=== PATIENT | male | born 2000 | race Caucasian/White ===

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

== ENCOUNTER 2021-04-01 17:02 | Emergency (ER) | payer MEDICAID, SELFPAY ==
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
[2021-04-01 17:06] VITALS: BP 114/58; PULSE 103; O2SAT 98
== END 2021-04-01 18:58 | disposition left against medical advice (07) ==
PROVIDERS: Emergency Provider Emergency Medicine
DX: T14.90XA Injury, unspecified, initial encounter (principal); Y04.8XXA Assault by other bodily force, initial encounter; M79.641 Pain in right hand; Y93.9 Activity, unspecified; Y92.9 Unspecified place or not applicable; Y99.9 Unspecified external cause status
CPT/HCPCS: 73110; 73130; 99283

== ENCOUNTER 2021-09-30 07:30 | Emergency (ER) | payer MEDICAID, SELFPAY ==
--- NOTE | ~2021-09-30 | CT_ITS ---
EXAMINATION: CT ABDOMEN AND PELVIS WITHOUT CONTRAST CLINICAL INFORMATION: Right lower quadrant pain. COMPARISON: None TECHNIQUE: Multidetector volumetric imaging was performed from the superior aspect of the liver through the pubic symphysis. Sagittal and coronal reformatted images were obtained on the technologist's workstation. This CT examination was performed using dose optimization techniques as appropriate, variously including the following: *Automated exposure control *Adjustment of mA and/or kV according to patient size (this includes techniques or standardized protocols for targeted exams where dose is matched to indication/reason for exam; i.e. extremities or head) *Use of iterative reconstruction technique DLP: 547 mGy-cm FINDINGS: LUNG BASES: The visualized lung bases are unremarkable. LIVER, GALLBLADDER, AND BILIARY TREE: The liver is normal in size, shape, and attenuation. No focal hepatic lesion or biliary ductal dilatation is present. The gallbladder is unremarkable with no evidence of radiopaque gallstones, gallbladder wall thickening, or obvious pericholecystic inflammatory changes. PANCREAS: Unremarkable. SPLEEN: Unremarkable. ADRENAL GLANDS: Unremarkable. KIDNEYS AND URETERS: The kidneys are normal in size, shape, and attenuation. No hydronephrosis, hydroureter, or calculi seen. No perinephric stranding. BLADDER: Unremarkable. GASTROINTESTINAL TRACT: The small and large bowel are unremarkable. The appendix measures 1 cm in diameter without mural thickening or periappendix haziness. No inflammatory process seen in the right lower quadrant. No free air, free fluid seen. ABDOMINAL WALL: No significant hernia is appreciated. LYMPH NODES: Normal. VASCULAR: Unremarkable. PELVIC VISCERA: Unremarkable. OSSEOUS STRUCTURES: Unremarkable. CT/CT abdomen pelvis wo con IMPRESSION: No acute intra-abdominal process seen. 1 cm appendix without mural thickening or roxanne appendix haziness. No radiopaque urolith or hydroureteronephrosis. Fleischner guidelines were followed.
[2021-09-30 07:38] VITALS: BP 127/68; PULSE 101; RESP 18; TEMP 36.9; O2SAT 97; BMI 28.1
[2021-09-30 08:23] LABS: MANUAL DIFF FLAG NO
[2021-09-30 08:25] LABS: Basophils Percent Auto 0.2 % (0-2); Hemoglobin 15.1 g/dl (14.0-18.0); Imm Gran Pct Auto 0.5 % (0.0-0.4); Lymphocytes Absolute Auto 1.1 X10*3/uL (1.2-4.9); Lymphocytes Percent Auto 5.8 % (20-40); Mean Corpuscular HGB Conc 33.6 g/dl (31.0-36.0); Mean Corpuscular Hemoglobin 27.8 pg (27.0-33.0); Mean Corpuscular Volume 82.7 fL (80.0-98.0); Mean Platelet Volume 11.1 fL (9.4-12.4); Monocytes Absolute Auto 0.9 X10*3/uL (0.1-1.2); Monocytes Percent Auto 4.5 % (2-11); Neutrophils Absolute Auto 17.6 x10*3/uL (2.0-8.3); Platelet Count 242 X10*3/uL (160-400); Red Blood Count 5.44 X10*6/uL (4.60-5.80); Red Cell Distribution Width 12.7 % (11.0-16.0); White Blood Count 19.8 X10*3/uL (4.8-10.8)
[2021-09-30 08:34] VITALS: BP 109/70; PULSE 84; RESP 15; TEMP 36.9; O2SAT 99
[2021-09-30 08:36] LABS: Anion Gap 12 (12-20); Blood Urea Nitrogen 7 mg/dL (9-16); Carbon Dioxide 26 mmol/L (22-29); Chloride 103 mmol/L (96-108); Creatinine Clr Calc Pharmacy 119.5; Estimated Glomerular Filt Rate > 60; Glucose Random 144 mg/dL (60-115); Potassium 4.1 mmol/L (3.3-5.1); Sodium 137 mmol/L (135-145)
[2021-09-30 08:39] LABS: Appearance Urine CLEAR; Color Urine YELLOW; Glucose Urine UA 250 MG/DL (NEG); Leukocyte Esterase Urine NEG (NEG); Nitrite Urine NEG (NEG); PH 5.5 (5.0-8.0); Specific Gravity - Urine 1.025 (1.005-1.025); UACC Culture Trigger NO; Urine Blood 2+ (NEG); Urine Ketones NEG (NEG); Urine Protein TRACE MG/DL (NEG-TRACE)
[2021-09-30 08:53] LABS: WBC Urine 0 /HPF (0-4)
--- NOTE | 2021-09-30 09:18 | ED_ITS ---
HPI - General Adult General Chief complaint: Nausea/Vomiting/Diarrhea Stated complaint: vomitting, abd pain Time Seen by Provider: 09/30/21 08:44 Source: patient Mode of arrival: ambulatory Limitations: no limitations History of Present Illness HPI narrative: 21-year-old male presents to the ED right lower quadrant pain since Thursday with episodes of nausea vomiting yesterday. Patient denies any dysuria, hemat uria, flank pain, fever, testicular pain, coughing, headache, dizziness or chills. Patient denies any penile discharge or penile lesions. Related Data Allergies Allergy/AdvReac Type Severity Reaction Status Date / Time No Known Allergies Allergy Unverified 01/26/20 19:03 Review of Systems Review of Systems: Right lower quadrant pain Yes all other systems are reviewed and are negative Physical Exam ED Vital Signs: Vital Signs - 24 hr 09/30/21 07:38 09/30/21 08:34 09/30/21 10:14 Temperature 98.4 F 98.5 F Pulse Rate 101 H 84 Respiratory Rate 18 15 17 Blood Pressure 127/68 109/70 Pulse Oximetry 97 99 09/30/21 11:08 09/30/21 12:41 Temperature Pulse Rate 64 63 Respiratory Rate 16 16 Blood Pressure 105/51 L 112/47 L Pulse Oximetry 98 99 BMI result Body Mass Index 28.1 Const General: cooperative, healthy appearing, comfortable, no acute distress, well developed, alert, awake and Physically active Orientation/consciousness: oriented to time and patient oriented x3 [facility] Head: Yes normal to inspection, Yes No palpable skull fracture present, Yes normocephalic, Yes atraumatic and No abrasion Eyes General: appearance normal, both eyes and all related structures Neck Neck: Yes normal visual inspection, Yes full ROM, Yes no lymphadenopathy, Yes no meningeal signs, Yes trachea midline, Yes supple, No anterior neck swelling and No tender Chest Chest palpation & inspection: normal inspection of the chest and normal palpation of entire chest wall Resp Effort & Inspection: normal respiratory effort and able to speak in complete sentences Auscultation: clear to auscultation bilaterally Cardio Jugular venous distension: no JVD Heart sounds: S1 normal heart sound present and S2 normal heart sound present GI Inspection: Yes normal to inspection and No abdominal wall ecchymosis Palpation (GI): Soft to palpation, not firm, Tenderness to palpation present (GI) in the RLQ, no guarding and not rigid General: No CVA tenderness and Yes no CVA tenderness Back/Spine/Pelvis Back: no CVA tenderness, No CVA tenderness and No back tenderness Skin General skin exam: no rashes or lesions noted and elasticity normal Neuro General: oriented to time, patient oriented x3, gait normal, no meningeal signs and CN's II-XI intact bilaterally Cranial nerves: Yes CN's II-XII intact bilaterally Extrem General: Yes normal to inspection and Yes full ROM Psych Appearance: grossly normal, well kempt and not disheveled Course Course Course Narrative: will order labs. Reevaluation(s) Reevaluation #1: Patient has significant right lower quadrant tenderness with white blood cell count 36589. Urine shows blood. Differential kidney stones versus appendicitis. Due to lack of IV contrast patient will have dry CT scan. Spoke with radiologist who states to do initial CT scan dry to check for kidney stones and appendicitis. Time: 09:27 Reevaluation #2: Case was discussed with Dr. Pizano for boothe potential repeat abdominal CT scan with IV contrast, but he states that was not indicated. He recommended surgical consult. Dr. Rivero of surgery was made aware/ Time: 12:09 Reevaluation #3: Dr. Lawson of surgery evaluated and spoke with patient with [place] intepreter in the ER. admission for observation was offered by Dr. Lawson to patient but patient declined. Patient informed surgeon that he was having diarrhea with abdominal pain for the past couple of days and family members have similar symptoms. This new information Surgeon, Dr. Lawson states patient may have enteriris, but still offer admisson for observation. he informed patient if symptoms worsen such as abdominal pain, fever, chills, nausea, vomiting, diarrhe a blood in stool, any other concerning symptoms patient should return to the ED. he also recommended a clear liquid diet for the next 24 hours. Patient made aware of small glucose in urine and informed to follow up with primary care provider. Time: 14:12 Medical Decision Making MDM Narrative Medical decision making narrative: abdominal pain. Enteritis Lab Data Result diagrams: 09/30/21 08:07 09/30/21 08:07 Labs: Lab Results 09/30/21 09/30/21 09/30/21 Range/Units 08:07 08:07 08:31 WBC 19.8 H (4.8-10.8) X10*3/uL RBC 5.44 (4.60-5.80) X10*6/uL Hgb 15.1 (14.0-18.0) g/dl Hct 45.0 (42.0-52.0) % MCV 82.7 (80.0-98.0) fL MCH 27.8 (27.0-33.0) pg MCHC 33.6 (31.0-36.0) g/dl RDW 12.7 (11.0-16.0) % Plt Count 242 (160-400) X10*3/uL MPV 11.1 (9.4-12.4) fL Immature Gran % (Auto) 0.5 H (0.0-0.4) % Neut % (Auto) 89.0 H (45-73) % Lymph % (Auto) 5.8 L (20-40) % Pershing % (Auto) 4.5 (2-11) % Eos % (Auto) 0.0 (0-4) % Baso % (Auto) 0.2 (0-2) % Lymph # (Auto) 1.1 L (1.2-4.9) X10*3/uL Pershing # (Auto) 0.9 (0.1-1.2) X10*3/uL Eos # (Auto) 0.0 (0.0-0.4) X10*3/uL Baso # (Auto) 0.0 (0.0-0.2) X10*3/uL Abs Immat Gran (auto) 0.10 H (0.00-0.03) X10*3/uL Absolute Neuts (auto) 17.6 H (2.0-8.3) x10*3/uL Absolute Nucleated RBC 0.000 (0.0-0.012) X10*3/uL Nucleated RBC % (auto) 0.0 (0.0-0.2) /100WBC Sodium 137 (135-145) mmol/L Potassium 4.1 (3.3-5.1) mmol/L Chloride 103 (96-108) mmol/L Carbon Dioxide 26 (22-29) mmol/L Anion Gap 12 (12-20) BUN 7 L (9-16) mg/dL Creatinine 1.04 (0.5-1.4) mg/dL Estim Creat Clear Calc 119.5 Estimated GFR > 60 Random Glucose 144 H (60-115) mg/dL Lactic Acid (0.5-2.0) mmol/L Calcium 10.0 (8.4-10.2) mg/dL Urine Color YELLOW Urine Appearance CLEAR Urine pH 5.5 (5.0-8.0) Ur Specific [place] 1.025 (1.005-1.025) Urine Protein TRACE (NEG-TRACE) MG/DL Urine Glucose (UA) 250 H (NEG) MG/DL Urine Ketones NEG (NEG) MG/DL Urine Blood 2+ H (NEG) Urine Nitrite NEG (NEG) Ur Leukocyte Esterase NEG (NEG) Urine RBC 5-9 H (0) /HPF Urine WBC 0 (0-4) /HPF Ur Squamous Epith Cells NONE /LPF Urine Bacteria NONE /LPF 09/30/21 Range/Units 09:45 WBC (4.8-10.8) X10*3/uL RBC (4.60-5.80) X10*6/uL Hgb (14.0-18.0) g/dl Hct (42.0-52.0) % MCV (80.0-98.0) fL MCH (27.0-33.0) pg MCHC (31.0-36.0) g/dl RDW (11.0-16.0) % Plt Count (160-400) X10*3/uL MPV (9.4-12.4) fL Immature Gran % (Auto) (0.0-0.4) % Neut % (Auto) (45-73) % Lymph % (Auto) (20-40) % Pershing % (Auto) (2-11) % Eos % (Auto) (0-4) % Baso % (Auto) (0-2) % Lymph # (Auto) (1.2-4.9) X10*3/uL Pershing # (Auto) (0.1-1.2) X10*3/uL Eos # (Auto) (0.0-0.4) X10*3/uL Baso # (Auto) (0.0-0.2) X10*3/uL Abs Immat Gran (auto) (0.00-0.03) X10*3/uL Absolute Neuts (auto) (2.0-8.3) x10*3/uL Absolute Nucleated RBC (0.0-0.012) X10*3/uL Nucleated RBC % (auto) (0.0-0.2) /100WBC Sodium (135-145) mmol/L Potassium (3.3-5.1) mmol/L Chloride (96-108) mmol/L Carbon Dioxide (22-29) mmol/L Anion Gap (12-20) BUN (9-16) mg/dL Creatinine (0.5-1.4) mg/dL Estim Creat Clear Calc Estimated GFR Random Glucose (60-115) mg/dL Lactic Acid 1.6 (0.5-2.0) mmol/L Calcium (8.4-10.2) mg/dL Urine Color Urine Appearance Urine pH (5.0-8.0) Ur Specific [place] (1.005-1.025) Urine Protein (NEG-TRACE) MG/DL Urine Glucose (UA) (NEG) MG/DL Urine Ketones (NEG) MG/DL Urine Blood (NEG) Urine Nitrite (NEG) Ur Leukocyte Esterase (NEG) Urine RBC (0) /HPF Urine WBC (0-4) /HPF Ur Squamous Epith Cells /LPF Urine Bacteria /LPF Discharge Plan Discharge Clinical Impression: Abdominal pain, Enteritis Patient Disposition: Home, Self-Care Instructions: Abdominal Pain (ED), Enteritis (ED) Additional Instructions: has elegido ir a casa. Nuestro cirujano de ciro recomienda quyen dieta de l?quidos johnnie paulina las pr?ximas 24 horas. Regrese al servicio de urgencias inmediatamente si empeora el dolor abdominal, fiebre, escalofr?os, hematuria, disuria, dolor en el costado, n?useas, v?mitos, incapacidad para tolerar l?quidos, kizzy en las heces, empeoramiento de la diarrea o cualquier otro s?ntoma preocupante. Por favor, may un seguimiento con mari proveedor de atenci?n primaria. Stand Alone Forms: Work/School Release Interventions: ED Discharge Assessment Last Done: 09/30/21 14:29 Discharge Date/Time: 09/30/21 14:30 Print Language: [place]
[2021-09-30] MEDS: 0.9 % Sodium Chloride 1,000 ML 999 ML IV (09:29)
[2021-09-30] MEDS: Ketorolac Tromethamine 30 MG/ML VIAL IVPUSH (09:53)
[2021-09-30 10:10] LABS: Lactic Acid 1.6 mmol/L (0.5-2.0)
[2021-09-30 10:14] VITALS: RESP 17
[2021-09-30 11:08] VITALS: BP 105/51; PULSE 64; RESP 16; O2SAT 98
[2021-09-30 12:41] VITALS: BP 112/47; PULSE 63; RESP 16; O2SAT 99
--- NOTE | 2021-09-30 13:17 | PC.NURSE ---
SURGEON AT BEDSIDE FOR CONSULT.
--- NOTE | 2021-09-30 13:41 | PM.CNGS ---
History of Present Illness Consult details Consult date: 09/30/21 Reason for consult: abdominal pain Narrative: The patient is a 21-year-old gentleman seen at the request of Jaison Petersen PA-C, in the emergency department because of abdominal pain, leukocytosis and an equivocal CT scan. The patient was seen with a merchandise support associate. Initially, while waiting for the merchandise support associate, asked if the patient had been having any diarrhea and if anyone else at home was ill. The patient initially said no, however when the merchandise support associate obtain the history, the patient endorsed that he has been having watery, liquid stool with no blood since last Thursday. He further reported that he was having severe progressive pain over the weekend and earlier today which brought him to the emergency department. Since getting IV hydration, the patient reports resolution. The patient presented with a leukocytosis to 19.8. CT of the abdomen and pelvis was performed which was equivocal with an approximately 10 mm appendix but with no stigmata of appendicitis. No other etiology for the patient's pain and leukocytosis was noted. Patient further endorses that everyone at home including his and children were ill with an upper respiratory tract infection approximately 3 weeks ago. There was also a diarrheal illness and that he was the last to get it, and the symptoms started last Thursday. He is keeping liquids down and denies any fevers, chills, personal history of Crohn's disease, inflammatory bowel disease or ulcerative colitis. Through the merchandise support associate, the patient reports that in [place], he had an upper endoscopy and a colonoscopy which were done for similar pains, but in the left upper quadrant and he was diagnosed with gastritis. He reports that he was treated and after moving to the [facility], he had repeat EGD and colonoscopy at [facility], the results of which are not available to me. He denies any abdominal operations. He reports no known drug allergies Social history is negative for smoking, drinking or any street drug use. He works at [employer] Family history according to the patient through the merchandise support associate is negative for asthma, diabetes, pulmonary, hepatic, renal disorders and specifically no Crohn's disease, inflammatory bowel disease or ulcerative colitis Patient reports no recent trauma but notes that he was [place] over the weekend with his family. He notes that he had swallowed some of the water but that is diarrheal illness pre dated swimming over the weekend. Review of Systems Constitutional: Constitutional: Reports no additional constitutional complaints Eyes: Eyes: Reports no additional eye complaints ENT: Comments: Patient reports a sore throat and recent upper respiratory tract infection with cough Cardiovascular: Cardiovascular: Reports no additional cardiovascular complaints Respiratory: Respiratory: Reports as per HPI and Reports no additional respiratory complaints Gastrointestinal: Gastrointestinal: Reports abdominal pain and Reports diarrhea Comments: Patient reports his abdominal pain has improved since getting IV hydration. Genitourinary: Genitourinary: Reports no additional male genitourinary complaints Musculoskeletal: Musculoskeletal: Reports no additional musculoskeletal complaints Integumentary/Breasts: Skin/Breast: Reports system reviewed and no additional complaints, except as docu Neurologic: Reports system reviewed and no additional complaints, except as documented Psychiatric: Psychiatric: Reports no additional psychiatric complaints Endocrine: Endocrine: Reports no additional endocrine complaints Hematologic/Lymphatic: Hematologic/Lymphatic: Reports no additional hematologic/lymphatic complaints PMFSH Past Medical History Functional capacity: independent ambulation Family History Pertinent family history: The patient denies inflammatory bowel disease history, Crohn's disease or ulcerative colitis in his immediate family. He further denies any diabetes, cardiac, pulmonary, hepatic or renal disorders Social History Social History Advance Directives: No Advance Directives Information Provided: Yes Travel History Ebola Risk: Travel/Contact With Anyone From Affected Area/s: No Meds Allergies Allergy/AdvReac Type Severity Reaction Status Date / Time No Known Allergies Allergy Unverified 01/26/20 19:03 Physical Exam Vital Signs: Vital Signs: Last Vital Signs Temp 98.5 F 09/30/21 08:34 Pulse 63 09/30/21 12:41 Resp 16 09/30/21 12:41 BP 112/47 L 09/30/21 12:41 Pulse Ox 99 09/30/21 12:41 BMI result Body Mass Index 28.1 On exam, the patient is a well-developed, well-nourished male in no acute distress. Insight, judgment and mood all seem appropriate NC/AT, PERRLA, EOMI Oropharynx is clear with no aphthous ulcers, Mallampati class 2 Neck is supple with no masses, adenopathy; thyroid is nontender and free of masses Heart is regular, normal S1-S2, no rubs or murmurs Lungs are clear and equal anteriorly with no audible wheezing, rubs nor bolus to percussion Abdomen is soft with mild right lower quadrant tenderness. I examined him again approximately an hour later and he has no peritoneal irritation to percussion Skin is good turgor and is free of rashes, numerous professional tattoos are present Extremities are free of cyanosis clubbing edema No neurological issues are appreciated Results Labs Result diagrams: 09/30/21 08:07 09/30/21 08:07 Labs: Abnormal lab results 09/30/21 09/30/21 09/30/21 Range/Units 08:07 08:07 08:31 WBC 19.8 H (4.8-10.8) X10*3/uL Immature Gran % (Auto) 0.5 H (0.0-0.4) % Neut % (Auto) 89.0 H (45-73) % Lymph % (Auto) 5.8 L (20-40) % Lymph # (Auto) 1.1 L (1.2-4.9) X10*3/uL Abs Immat Gran (auto) 0.10 H (0.00-0.03) X10*3/uL Absolute Neuts (auto) 17.6 H (2.0-8.3) x10*3/uL BUN 7 L (9-16) mg/dL Random Glucose 144 H (60-115) mg/dL Urine Glucose (UA) 250 H (NEG) MG/DL Urine Blood 2+ H (NEG) Urine RBC 5-9 H (0) /HPF Short CBC 09/30/21 Range/Units 08:07 WBC 19.8 H (4.8-10.8) X10*3/uL Hgb 15.1 (14.0-18.0) g/dl Hct 45.0 (42.0-52.0) % Plt Count 242 (160-400) X10*3/uL BMP 09/30/21 08:07 Sodium 137 Potassium 4.1 Chloride 103 Carbon Dioxide 26 BUN 7 L Creatinine 1.04 Calcium 10.0 Urine 09/30/21 Range/Units 08:31 Urine Color YELLOW Urine Appearance CLEAR Urine pH 5.5 (5.0-8.0) Ur Specific [place] 1.025 (1.005-1.025) Urine Protein TRACE (NEG-TRACE) MG/DL Urine Glucose (UA) 250 H (NEG) MG/DL All other labs normal. Imaging Abdomen CT scan report/results: report reviewed and image reviewed Assessment and Plan (1) Right lower quadrant pain: Status: Acute (2) Diarrhea: Status: Acute Plan With the help of a merchandise support associate, the diarrheal illness and crampy abdominal pain that is improving with IV hydration is likely infectious enteritis that is improving. I reviewed the CT scan with an on-site radiologist and we were in agreement that it is equivocal since there is no evidence of inflammation at the appendix and the patient has been having symptoms for over 48 hours. While his leukocytosis is significant, the glucose in his urine and blood have an unclear etiology Since other members at home had diarrheal illness, I suspect this is infectious in should improve over the next 24 hours. The possibility of early appendicitis and the option of admission and overnight hydration was discussed with the patient but declined given his interval improvement. The plan was reviewed with Chente Petersen who resumed care and would give instructions regarding hydration, diarrheal illness and to return to the emergency department if the right lower quadrant returns and progresses. If the patient is unable to keep p.o. down, he will return. Please reconsult the surgeon on-call if the patient returns. Thank you for asking me to participate in his care. Procedures Date of Service Date of Service: 09/30/21
== END 2021-09-30 14:30 | disposition home or self-care (01) ==
PROVIDERS: Physician Assistant; Emergency Provider Emergency Medicine
DX: K52.9 Noninfective gastroenteritis and colitis, unspecified (principal); R11.2 Nausea with vomiting, unspecified; R10.31 Right lower quadrant pain
CPT/HCPCS: 36415; 74176; 80048; 81001; 83605; 85025; 87040; 96361; 96374; 99284; J1885

== ENCOUNTER 2021-09-30 18:25 | Emergency (ER) | payer MEDICAID, SELFPAY ==
[2021-09-30 18:36] VITALS: BP 117/64; PULSE 85; RESP 20; TEMP 36.9; O2SAT 98; BMI 28.1
== END 2021-09-30 21:30 | disposition left against medical advice (07) ==
PROVIDERS: Emergency Provider Emergency Medicine
DX: R10.9 Unspecified abdominal pain (principal)

== ENCOUNTER 2021-10-01 07:37 | Emergency (ER) | payer MEDICAID, SELFPAY ==
--- NOTE | ~2021-10-01 | CT_ITS ---
EXAMINATION: CT ABDOMEN AND PELVIS WITH CONTRAST CLINICAL INFORMATION: Right lower quadrant pain with diarrhea COMPARISON: CT abdomen pelvis yesterday TECHNIQUE: Multidetector volumetric images were obtained from the superior aspect of the liver through the pubic symphysis following administration 85 mL of Omnipaque 350 intravenous contrast. Sagittal and coronal reformatted images were obtained on the technologist's workstation. Oral contrast: No This CT examination was performed using dose optimization techniques as appropriate, variously including the following: *Automated exposure control *Adjustment of mA and/or kV according to patient size (this includes techniques or standardized protocols for targeted exams where dose is matched to indication/reason for exam; i.e. extremities or head) *Use of iterative reconstruction technique DLP: 559 mGy-cm FINDINGS: LUNG BASES: The visualized lung bases are unremarkable. LIVER, GALLBLADDER, AND BILIARY TREE: The liver is normal in size and shape but demonstrates slightly decreased attenuation compared to the spleen suggesting hepatic steatosis.. No focal hepatic lesion or biliary ductal dilatation is present. The gallbladder is unremarkable with no evidence of radiopaque gallstones, gallbladder wall thickening, or obvious pericholecystic inflammatory changes. PANCREAS: Unremarkable. SPLEEN: Spleen is generous in size measuring 13 cm in greatest transverse dimension. ADRENAL GLANDS: Unremarkable. KIDNEYS AND URETERS: The kidneys are normal in size, shape, and attenuation. No hydronephrosis, hydroureter, or calculi seen. No perinephric stranding. BLADDER: Unremarkable. GASTROINTESTINAL TRACT: The small and large bowel are unremarkable. The appendix is better seen on today's exam performed with oral contrast. The appendix itself contains no contrast and no air and measures 0.9 cm in diameter, near the upper limits of normal. No periappendiceal inflammatory changes are present. No appendicolith is seen. ABDOMINAL WALL: No significant hernia is appreciated. LYMPH NODES: Normal. VASCULAR: Unremarkable. The left renal vein is retroaortic. PELVIC VISCERA: Unremarkable. OSSEOUS STRUCTURES: Unremarkable. CT/CT abdomen pelvis w con IMPRESSION: The appendix is well seen measuring 0.9 cm in diameter. It contains no air but no periappendiceal inflammatory changes are seen and no appendicolith is present. Hence, there is no convincing evidence to suggest acute appendicitis. Incidental note made of probable hepatic steatosis and mild splenomegaly. Fleischner guidelines were followed.
[2021-10-01 07:47] VITALS: BP 106/51; PULSE 63; RESP 18; TEMP 37; O2SAT 99; BMI 28.1
[2021-10-01] MEDS: 0.9 % Sodium Chloride 1,000 ML 999 ML IV (08:56)
[2021-10-01 08:57] LABS: Appearance Urine HAZY; Color Urine YELLOW; Glucose Urine UA NEG (NEG); Leukocyte Esterase Urine NEG (NEG); Nitrite Urine NEG (NEG); Specific Gravity - Urine 1.015 (1.005-1.025); UACC Culture Trigger NO; Urine Blood 1+ (NEG); Urine Ketones NEG (NEG); Urine Protein TRACE MG/DL (NEG-TRACE)
[2021-10-01 09:07] LABS: Lactic Acid 0.8 mmol/L (0.5-2.0)
[2021-10-01 09:16] LABS: Squamous Epithelial Cell Urine TRACE /LPF; WBC Urine 0 /HPF (0-4)
[2021-10-01 09:18] LABS: MANUAL DIFF FLAG NO
[2021-10-01 09:20] LABS: Basophils Percent Auto 0.3 % (0-2); Eosinophils Absolute Auto 0.1 X10*3/uL (0.0-0.4); Eosinophils Percent Auto 1.6 % (0-4); Hematocrit 42.7 % (42.0-52.0); Hemoglobin 13.8 g/dl (14.0-18.0); Imm Gran Abs Auto 0.02 X10*3/uL (0.00-0.03); Imm Gran Pct Auto 0.3 % (0.0-0.4); Lymphocytes Absolute Auto 1.8 X10*3/uL (1.2-4.9); Lymphocytes Percent Auto 26.6 % (20-40); Mean Corpuscular HGB Conc 32.3 g/dl (31.0-36.0); Mean Corpuscular Hemoglobin 27.2 pg (27.0-33.0); Mean Corpuscular Volume 84.2 fL (80.0-98.0); Mean Platelet Volume 11.3 fL (9.4-12.4); Monocytes Absolute Auto 0.5 X10*3/uL (0.1-1.2); Monocytes Percent Auto 6.9 % (2-11); Neutrophils Absolute Auto 4.3 x10*3/uL (2.0-8.3); Neutrophils Percent Auto 64.3 % (45-73); Platelet Count 208 X10*3/uL (160-400); Red Blood Count 5.07 X10*6/uL (4.60-5.80); Red Cell Distribution Width 12.8 % (11.0-16.0); White Blood Count 6.7 X10*3/uL (4.8-10.8)
--- NOTE | 2021-10-01 09:23 | ED_ITS ---
HPI - Abdominal Pain General Chief Complaint: Abdominal Pain Stated Complaint: Abd pain Time Seen by Provider: 10/01/21 08:22 Source: patient Mode of arrival: ambulatory History of Present Illness HPI narrative: 21-year-old male presenting to the ED complaining of persistent RLQ abdominal pain and nonbloody diarrhea since yesterday. Patient was evaluated in our ED yesterday for similar symptoms, had leukocytosis of 19,000, CT negative, & was evaluated by General surgery who recommended patient stay for observation for suspected enteritis however patient went home. Denies fever, chills, nausea, vomiting, constipation, dysuria / hematuria, penile/testicular pain MD elicited complaint: abdominal pain Onset (ago): day(s) Related Data Allergies Allergy/AdvReac Type Severity Reaction Status Date / Time No Known Allergies Allergy Verified 10/01/21 07:45 Review of Systems Review of Systems Constitutional: No Fever, No Chills, No Fatigue, No Malaise ENT/Mouth: No Hearing loss, No Ear Pain, No Nasal Congestion, No sore throat, No Rhinorrhea, No Swallowing Difficulty Eyes: No Eye Pain, No Swelling, No Redness Cardiovascular: No Chest Pain, No SOB, No Dyspnea on Exertion, No Orthopnea, No Edema, No Palpitations Respiratory: No Cough, No Sputum, No Dyspnea Gastrointestinal: No Nausea, No Vomiting, + Diarrhea, No Constipation, + Abdominal pain, No Hematochezia, No Melena Genitourinary: No Dysuria, No Urinary Frequency, No Hematuria, No Urinary Incontinence/retention, No Flank Pain Musculoskeletal: No joint pain, No Myalgias, No Joint Swelling Skin: No Skin Lesions, No rash Neuro: No Weakness, No Dizziness, No Headache Yes all other systems are reviewed and are negative [facility] Past Medical History Attestation statement: The following information was validated with the patient. Medical History Abdominal pain Social History Social History Advance Directives: No Advance Directives Information Provided: No Physical Exam ED Vital Signs: Vital Signs - 24 hr 10/01/21 07:47 10/01/21 13:59 Temperature 98.6 F Pulse Rate 63 55 Respiratory Rate 18 14 Blood Pressure 106/51 L 103/51 L Pulse Oximetry 99 100 BMI result Body Mass Index 28.1 Const General: cooperative, healthy appearing and no acute distress Orientation/consciousness: patient oriented x3 Limitations: no limitations HENMT Head: Yes normal to inspection and Yes atraumatic Ears: hearing grossly normal bilaterally General nose exam: Normal external nose present Face and sinus: Yes normal facial exam Eyes General: appearance normal, both eyes and all related structures EOM: EOMs intact bilaterally Neck Neck: Yes normal visual inspection and Yes no meningeal signs Resp Effort & Inspection: normal respiratory effort and no respiratory distress Cardio Rate: regular rate Heart sounds: S1 normal heart sound present and S2 normal heart sound present GI Inspection: Yes normal to inspection Palpation (GI): Soft to palpation, Tenderness to palpation present (GI) in the RLQ; Negative for with no rebound tenderness, no guarding and not rigid General: Yes no CVA tenderness Back/Spine/Pelvis Back: no CVA tenderness Skin Rashes: no rashes Wounds: no wounds Neuro General: patient oriented x3, tone normal and no meningeal signs Gait exam (Neuro): Normal gait present Extrem General: Yes normal to inspection Course Course Course Narrative: -1007-- leukocytosis improved to 6.7. Labs otherwise unremarkable. Will consult General surgery Dr. Gallo > Stool studies added - Dr. Gallo who will evaluate patient later today and recommended considera tion of repeat CT. I spoke with radiologist Dr. Pizano who recommended p.o. contrast due to nationwide IV contrast depletion. CT abdomen pelvis w con IMPRESSION: The appendix is well seen measuring 0.9 cm in diameter. It contains no air but no periappendiceal inflammatory changes are seen and no appendicolith is present. Hence, there is no convincing evidence to suggest acute appendicitis. ? Incidental note made of probable hepatic steatosis and mild splenomegaly. ? Fleischner guidelines were followed. > patient was evaluated by Dr. Gallo and patient and himself feel comfortable for discharge home. results were discussed with patient with [place] inter preter, including worrisome signs and symptoms and strict return precautions & needed close follow-up with PCP MDM - Abdominal Pain MDM Narrative Medical decision making narrative: 21-year-old male presenting to the ED complaining of persistent RLQ abdominal pain and nonbloody diarrhea since yesterday. on exam vital signs stable, NAD/nontoxic appearing, abdomen soft with RLQ TTP, no rebound or guarding, No CVA tenderness. Concern for appendicitis vs gastroenteritis vs food poisoning vs ? diverticulitis. Plan: Will repeat labs/UA and consult General surgery Differential Diagnosis Differential diagnosis: Likely abdominal pain, constipation, diverticulitis, gastroenteritis, gastritis and pancreatitis Medical Records Attestation: I reviewed the patient's medical records. Lab Data Attestation: I reviewed the patient's lab results. Result diagrams: 10/01/21 08:45 10/01/21 08:45 Labs: Lab Results 10/01/21 10/01/21 10/01/21 Range/Units 08:45 08:45 08:45 WBC 6.7 (4.8-10.8) X10*3/uL RBC 5.07 (4.60-5.80) X10*6/uL Hgb 13.8 L (14.0-18.0) g/dl Hct 42.7 (42.0-52.0) % MCV 84.2 (80.0-98.0) fL MCH 27.2 (27.0-33.0) pg MCHC 32.3 (31.0-36.0) g/dl RDW 12.8 (11.0-16.0) % Plt Count 208 (160-400) X10*3/uL MPV 11.3 (9.4-12.4) fL Immature Gran % (Auto) 0.3 (0.0-0.4) % Neut % (Auto) 64.3 (45-73) % Lymph % (Auto) 26.6 (20-40) % [place] % (Auto) 6.9 (2-11) % Eos % (Auto) 1.6 (0-4) % Baso % (Auto) 0.3 (0-2) % Lymph # (Auto) 1.8 (1.2-4.9) X10*3/uL [place] # (Auto) 0.5 (0.1-1.2) X10*3/uL Eos # (Auto) 0.1 (0.0-0.4) X10*3/uL Baso # (Auto) 0.0 (0.0-0.2) X10*3/uL Abs Immat Gran (auto) 0.02 (0.00-0.03) X10*3/uL Absolute Neuts (auto) 4.3 (2.0-8.3) x10*3/uL Absolute Nucleated RBC 0.000 (0.0-0.012) X10*3/uL Nucleated RBC % (auto) 0.0 (0.0-0.2) /100WBC Sodium 140 (135-145) mmol/L Potassium 4.3 (3.3-5.1) mmol/L Chloride 106 (96-108) mmol/L Carbon Dioxide 26 (22-29) mmol/L Anion Gap 12 (12-20) BUN 5 L (9-16) mg/dL Creatinine 0.88 (0.5-1.4) mg/dL Estim Creat Clear Calc 141.2 Estimated GFR > 60 Random Glucose 97 (60-115) mg/dL Lactic Acid 0.8 (0.5-2.0) mmol/L Calcium 9.2 D (8.4-10.2) mg/dL Magnesium 2.2 (1.6-2.6) mg/dL Total Bilirubin 0.5 (0.0-1.0) mg/dL Direct Bilirubin 0.2 (0.0-0.5) mg/dL AST 29 (5-37) U/L ALT 24 (0-40) U/L Alkaline Phosphatase 120 H (39-117) U/L Total Protein 7.1 (6.5-8.0) g/dL Albumin 4.0 (3.5-5.0) g/dL Lipase 10 (8-78) U/L Urine Color Urine Appearance Urine pH (5.0-8.0) Ur Specific [place] (1.005-1.025) Urine Protein (NEG-TRACE) MG/DL Urine Glucose (UA) (NEG) MG/DL Urine Ketones (NEG) MG/DL Urine Blood (NEG) Urine Nitrite (NEG) Ur Leukocyte Esterase (NEG) Urine RBC (0) /HPF Urine WBC (0-4) /HPF Ur Squamous Epith Cells /LPF Urine Bacteria /LPF 10/01/21 Range/Units 08:45 WBC (4.8-10.8) X10*3/uL RBC (4.60-5.80) X10*6/uL Hgb (14.0-18.0) g/dl Hct (42.0-52.0) % MCV (80.0-98.0) fL MCH (27.0-33.0) pg MCHC (31.0-36.0) g/dl RDW (11.0-16.0) % Plt Count (160-400) X10*3/uL MPV (9.4-12.4) fL Immature Gran % (Auto) (0.0-0.4) % Neut % (Auto) (45-73) % Lymph % (Auto) (20-40) % [place] % (Auto) (2-11) % Eos % (Auto) (0-4) % Baso % (Auto) (0-2) % Lymph # (Auto) (1.2-4.9) X10*3/uL [place] # (Auto) (0.1-1.2) X10*3/uL Eos # (Auto) (0.0-0.4) X10*3/uL Baso # (Auto) (0.0-0.2) X10*3/uL Abs Immat Gran (auto) (0.00-0.03) X10*3/uL Absolute Neuts (auto) (2.0-8.3) x10*3/uL Absolute Nucleated RBC (0.0-0.012) X10*3/uL Nucleated RBC % (auto) (0.0-0.2) /100WBC Sodium (135-145) mmol/L Potassium (3.3-5.1) mmol/L Chloride (96-108) mmol/L Carbon Dioxide (22-29) mmol/L Anion Gap (12-20) BUN (9-16) mg/dL Creatinine (0.5-1.4) mg/dL Estim Creat Clear Calc Estimated GFR Random Glucose (60-115) mg/dL Lactic Acid (0.5-2.0) mmol/L Calcium (8.4-10.2) mg/dL Magnesium (1.6-2.6) mg/dL Total Bilirubin (0.0-1.0) mg/dL Direct Bilirubin (0.0-0.5) mg/dL AST (5-37) U/L ALT (0-40) U/L Alkaline Phosphatase (39-117) U/L Total Protein (6.5-8.0) g/dL Albumin (3.5-5.0) g/dL Lipase (8-78) U/L Urine Color YELLOW Urine Appearance HAZY Urine pH 6.0 (5.0-8.0) Ur Specific [place] 1.015 (1.005-1.025) Urine Protein TRACE (NEG-TRACE) MG/DL Urine Glucose (UA) NEG (NEG) MG/DL Urine Ketones NEG (NEG) MG/DL Urine Blood 1+ H (NEG) Urine Nitrite NEG (NEG) Ur Leukocyte Esterase NEG (NEG) Urine RBC 1-4 (0) /HPF Urine WBC 0 (0-4) /HPF Ur Squamous Epith Cells TRACE /LPF Urine Bacteria NONE /LPF Discharge Plan Discharge Clinical Impression: Abdominal pain Qualifiers: Abdominal location: right lower quadrant Qualified Code(s): R10.31 - Right lower quadrant pain Patient Disposition: Home, Self-Care Instructions: Abdominal Pain (ED) Additional Instructions: your blood work was reassuring today in the emergency department. your CT scan is unremarkable. Does show some fatty liver however this is likely diet related please follow-up with her primary care doctor in the next couple days. Push fluids. Take Tylenol Motrin as needed. Practice of bland diet. If symptoms persist or worsen, pain become constant or unbearable, you have fever, persistent nausea / vomiting or diarrhea please return to the emergency dep artment mari an?lisis de kizzy fue tranquilizador hoy en el departamento de emergencias. mari tomograf?a computarizada no tiene nada especial. Muestra algo de h?gado graso, sin embargo, esto probablemente est? relacionado con la dieta. may un seguimiento con mari m?dico de atenci?n primaria en los pr?ximos d?as. Empuje los fluidos. [place] Tylenol Motrin seg?n sea necesario. Pr?ctica de dieta blanda. Si los s?ntomas persisten o empeoran, el dolor se vuelve parisa o insoportable, tiene fiebre, n?useas/v?mitos persistentes o diarrea, regrese al departamento de emergencias. Referrals: [facility] [Primary Care Provider] - 2 days Print Language: [place]ian
[2021-10-01 09:46] LABS: Alanine Aminotransferase 24 U/L (0-40); Alkaline Phosphatase 120 U/L (39-117); Anion Gap 12 (12-20); Aspartate Amino Transferase 29 U/L (5-37); Bilirubin Direct 0.2 mg/dL (0.0-0.5); Bilirubin Total 0.5 mg/dL (0.0-1.0); Blood Urea Nitrogen 5 mg/dL (9-16); Calcium 9.2 mg/dL (8.4-10.2); Carbon Dioxide 26 mmol/L (22-29); Chloride 106 mmol/L (96-108); Creatinine Clr Calc Pharmacy 141.2; Estimated Glomerular Filt Rate > 60; Glucose Random 97 mg/dL (60-115); Lipase 10 U/L (8-78); Magnesium 2.2 mg/dL (1.6-2.6); Potassium 4.3 mmol/L (3.3-5.1); Sodium 140 mmol/L (135-145); Total Protein 7.1 g/dL (6.5-8.0)
[2021-10-01] MEDS: Ketorolac Tromethamine 15 MG/ML VIAL IVPUSH (10:17)
--- NOTE | 2021-10-01 10:49 | PC.NURSE ---
pt drinking po contrast, no vomiting at this time.
[2021-10-01] MEDS: Barium Sulfate Oral (Berry) 450 ML ORAL.SUSP 900 ML PO (12:51)
--- NOTE | 2021-10-01 13:45 | PC.NURSE ---
pt sleeping, easily awoken,, no nausea or vomiting, denies pain at this time.
[2021-10-01 13:59] VITALS: BP 103/51; PULSE 55; RESP 14; O2SAT 100
--- NOTE | 2021-10-01 14:28 | PM.CNGS ---
History of Present Illness Consult details Consult date: 10/01/21 Narrative: 21-year-old male referred by the ER for abdominal pain. He actually was here yesterday as well for the same complaints. He was seen by Dr. Lawson for abdominal pain. The patient's CT scan did not reveal any obvious etiology. He had right-sided abdominal pain but his appendix did appear inflamed. Dr. Lawson had apparently told him that he can be admitted overnight for observation but he decided to go home. His abdominal pain had resolved after was given IV fluids. He however says that he had recurrence of pain again this morning so he came back to the ER. His relevant history actually dates back to about a week ago. He says that he has had some right-sided abdominal pain and diarrhea for about a week now. He says that his stools had been watery periodically. He had some vomiting over the weekend as well. He did state that his diarrhea seemed to have improved has 2 days. He describes having 3 bowel movements of water stools last Thursday and about 1 or 2 yesterday. He said he has had no diarrhea today. He has had no vomiting. He says he actually tolerates food well. He does mention that his abdominal pain had been periodic last week. He denies any fever or chills. He also admits that he has had some chronic GI issues for years now and has had undergone EGD and colonoscopy in [place] as well as in [facility]. He is uncertain as to any significant findings. Review of Systems Constitutional: Constitutional: Denies chills and Denies fever(s) Cardiovascular: Cardiovascular: Denies chest pain, Denies dyspnea and Denies dyspnea on exertion Respiratory: Respiratory: Denies cough, Denies dyspnea and Denies dyspnea on exertion Gastrointestinal: Gastrointestinal: Denies hematochezia and Reports diarrhea Genitourinary: Genitourinary: Denies hematuria and Denies difficulty urinating Musculoskeletal: Musculoskeletal: Denies back pain and Denies limited range of motion Neurologic: Denies focal weakness and Denies convulsions Psychiatric: Psychiatric: Denies depression and Denies mood swings PMFSH Past Medical History Medical History (Updated 10/01/21 @ 14:34 by Ra Gallo MD) Abdominal pain Social History Social History Advance Directives: No Advance Directives Information Provided: No Meds Allergies Allergy/AdvReac Type Severity Reaction Status Date / Time No Known Allergies Allergy Verified 10/01/21 07:45 Physical Exam Vital Signs: Vital Signs: Last Vital Signs Temp 98.6 F 10/01/21 07:47 Pulse 55 10/01/21 13:59 Resp 14 10/01/21 13:59 BP 103/51 L 10/01/21 13:59 Pulse Ox 100 10/01/21 13:59 BMI result Body Mass Index 28.1 Const: Other: looks well General: comfortable and no acute distress Orientation/consciousness: patient oriented x3 Neck: Neck: Yes no lymphadenopathy Resp: Auscultation: clear to auscultation bilaterally Cardio: Rhythm: regular rhythm GI: Other: very minimal tenderness on the right abdomen, no guarding rebound, no Silva's sign, no psoas sign, no Rovsing's sign Palpation (GI): Soft to palpation, nontender and no guarding Neuro: General: patient oriented x3 Results Labs Result diagrams: 10/01/21 08:45 10/01/21 08:45 Labs: Abnormal lab results 10/01/21 10/01/21 10/01/21 Range/Units 08:45 08:45 08:45 Hgb 13.8 L (14.0-18.0) g/dl BUN 5 L (9-16) mg/dL Alkaline Phosphatase 120 H (39-117) U/L Urine Blood 1+ H (NEG) Short CBC 10/01/21 Range/Units 08:45 WBC 6.7 (4.8-10.8) X10*3/uL Hgb 13.8 L (14.0-18.0) g/dl Hct 42.7 (42.0-52.0) % Plt Count 208 (160-400) X10*3/uL BMP 10/01/21 08:45 Sodium 140 Potassium 4.3 Chloride 106 Carbon Dioxide 26 BUN 5 L Creatinine 0.88 Calcium 9.2 D Liver Function 10/01/21 Range/Units 08:45 Total Bilirubin 0.5 (0.0-1.0) mg/dL Direct Bilirubin 0.2 (0.0-0.5) mg/dL AST 29 (5-37) U/L ALT 24 (0-40) U/L Alkaline Phosphatase 120 H (39-117) U/L Albumin 4.0 (3.5-5.0) g/dL Urine 10/01/21 Range/Units 08:45 Urine Color YELLOW Urine Appearance HAZY Urine pH 6.0 (5.0-8.0) Ur Specific [place] 1.015 (1.005-1.025) Urine Protein TRACE (NEG-TRACE) MG/DL Urine Glucose (UA) NEG (NEG) MG/DL All other labs normal. Imaging Abdomen CT scan report/results: report reviewed and image reviewed CT scan - pelvis: report reviewed Additional studies: Laboratory Results WBC 6.7 X10*3/uL (4.8-10.8) 10/01/21 08:45 RBC 5.07 X10*6/uL (4.60-5.80) 10/01/21 08:45 Hgb 13.8 g/dl (14.0-18.0) L 10/01/21 08:45 Hct 42.7 % (42.0-52.0) 10/01/21 08:45 MCV 84.2 fL (80.0-98.0) 10/01/21 08:45 MCH 27.2 pg (27.0-33.0) 10/01/21 08:45 MCHC 32.3 g/dl (31.0-36.0) 10/01/21 08:45 RDW 12.8 % (11.0-16.0) 10/01/21 08:45 Plt Count 208 X10*3/uL (160-400) 10/01/21 08:45 MPV 11.3 fL (9.4-12.4) 10/01/21 08:45 Immature Gran % (Auto) 0.3 % (0.0-0.4) 10/01/21 08:45 Neut % (Auto) 64.3 % (45-73) 10/01/21 08:45 Lymph % (Auto) 26.6 % (20-40) 10/01/21 08:45 [place] % (Auto) 6.9 % (2-11) 10/01/21 08:45 Eos % (Auto) 1.6 % (0-4) 10/01/21 08:45 Baso % (Auto) 0.3 % (0-2) 10/01/21 08:45 Lymph # (Auto) 1.8 X10*3/uL (1.2-4.9) 10/01/21 08:45 [place] # (Auto) 0.5 X10*3/uL (0.1-1.2) 10/01/21 08:45 Eos # (Auto) 0.1 X10*3/uL (0.0-0.4) 10/01/21 08:45 Baso # (Auto) 0.0 X10*3/uL (0.0-0.2) 10/01/21 08:45 Abs Immat Gran (auto) 0.02 X10*3/uL (0.00-0.03) 10/01/21 08:45 Absolute Neuts (auto) 4.3 x10*3/uL (2.0-8.3) 10/01/21 08:45 Absolute Nucleated RBC 0.000 X10*3/uL (0.0-0.012) 10/01/21 08:45 Nucleated RBC % (auto) 0.0 /100WBC (0.0-0.2) 10/01/21 08:45 Sodium 140 mmol/L (135-145) 10/01/21 08:45 Potassium 4.3 mmol/L (3.3-5.1) 10/01/21 08:45 Chloride 106 mmol/L (96-108) 10/01/21 08:45 Carbon Dioxide 26 mmol/L (22-29) 10/01/21 08:45 Anion Gap 12 (12-20) 10/01/21 08:45 BUN 5 mg/dL (9-16) L 10/01/21 08:45 Creatinine 0.88 mg/dL (0.5-1.4) 10/01/21 08:45 Estim Creat Clear Calc 141.2 10/01/21 08:45 Estimated GFR > 60 10/01/21 08:45 Random Glucose 97 mg/dL (60-115) 10/01/21 08:45 Lactic Acid 0.8 mmol/L (0.5-2.0) 10/01/21 08:45 Calcium 9.2 mg/dL (8.4-10.2) D 10/01/21 08:45 Magnesium 2.2 mg/dL (1.6-2.6) 10/01/21 08:45 Total Bilirubin 0.5 mg/dL (0.0-1.0) 10/01/21 08:45 Direct Bilirubin 0.2 mg/dL (0.0-0.5) 10/01/21 08:45 AST 29 U/L (5-37) 10/01/21 08:45 ALT 24 U/L (0-40) 10/01/21 08:45 Alkaline Phosphatase 120 U/L (39-117) H 10/01/21 08:45 Total Protein 7.1 g/dL (6.5-8.0) 10/01/21 08:45 Albumin 4.0 g/dL (3.5-5.0) 10/01/21 08:45 Lipase 10 U/L (8-78) 10/01/21 08:45 Urine Color YELLOW 10/01/21 08:45 Urine Appearance HAZY 10/01/21 08:45 Urine pH 6.0 (5.0-8.0) 10/01/21 08:45 Ur Specific [place] 1.015 (1.005-1.025) 10/01/21 08:45 Urine Protein TRACE MG/DL (NEG-TRACE) 10/01/21 08:45 Urine Glucose (UA) NEG MG/DL (NEG) 10/01/21 08:45 Urine Ketones NEG MG/DL (NEG) 10/01/21 08:45 Urine Blood 1+ (NEG) H 10/01/21 08:45 Urine Nitrite NEG (NEG) 10/01/21 08:45 Ur Leukocyte Esterase NEG (NEG) 10/01/21 08:45 Urine RBC 1-4 /HPF (0) 10/01/21 08:45 Urine WBC 0 /HPF (0-4) 10/01/21 08:45 Ur Squamous Epith Cells TRACE /LPF 10/01/21 08:45 Urine Bacteria NONE /LPF 10/01/21 08:45 Impressions Abdomen/Pelvis CT 10/01/21 12:53 IMPRESSION: The appendix is well seen measuring 0.9 cm in diameter. It contains no air but no periappendiceal inflammatory changes are seen and no appendicolith is present. Hence, there is no convincing evidence to suggest acute appendicitis. Incidental note made of probable hepatic steatosis and mild splenomegaly. Fleischner guidelines were followed. Assessment and Plan (1) Abdominal pain: Status: Acute He came back to the ER today because of his abdominal pain. He says that he was told yesterday come back to the ER if he has recurrence of pain. He says that this is much better now. His abdominal exam remains very benign. White count is also normal. I have reviewed his repeat CT scan today. This does not reveal any inflammatory process within the abdomen. There is no obvious pathology may explain his pain. He does have associated symptoms that suggest gastroenteritis. He is able to tolerate food and does state that his diarrhea is much improved. Furthermore, he has had no vomiting In the absence of any significant scan finding, and very benign exam, I feel that he does not need to be admitted to the hospital. he may need to be worked up for etiology of diarrhea depending on his clinical course. He says that he is comfortable with going home as he says he is hungry and feels much better. I have discussed the above with the ED staff Procedures Date of Service Date of Service: 10/01/21
--- NOTE | 2021-10-01 14:33 | PC.NURSE ---
DR FLOYD AT BEDSIDE.
== END 2021-10-01 15:16 | disposition home or self-care (01) ==
PROVIDERS: Physician Assistant; Emergency Provider Emergency Medicine Emergency Medical Services
DX: R10.31 Right lower quadrant pain (principal); R19.7 Diarrhea, unspecified; Z79.899 Other long term (current) drug therapy
CPT/HCPCS: 36415; 74176; 74177; 80048; 80076; 81001; 83605; 83690; 83735; 85025; 87040; 96361; 96374; 99284; J1885

== ENCOUNTER 2024-01-26 17:45 | Inpatient (IN) | payer MEDICAID, SELFPAY ==
--- NOTE | ~2024-01-26 | CT_ITS ---
EXAMINATION: CT ABDOMEN AND PELVIS WITHOUT CONTRAST CLINICAL INFORMATION: Right lower quadrant pain COMPARISON: CT abdomen and pelvis October 01, 2021 TECHNIQUE: Multidetector volumetric imaging was performed from the superior aspect of the liver through the pubic symphysis. Sagittal and coronal reformatted images were obtained on the technologist's workstation. This CT examination was performed using dose optimization techniques as appropriate, variously including the following: *Automated exposure control *Adjustment of mA and/or kV according to patient size (this includes techniques or standardized protocols for targeted exams where dose is matched to indication/reason for exam; i.e. extremities or head) *Use of iterative reconstruction technique DLP: 630 mGy-cm FINDINGS: LUNG BASES: The visualized lung bases are unremarkable. LIVER, GALLBLADDER, AND BILIARY TREE: The liver is normal in size, shape, and attenuation. No focal hepatic lesion or biliary ductal dilatation is present. The gallbladder is unremarkable with no evidence of radiopaque gallstones, gallbladder wall thickening, or obvious pericholecystic inflammatory changes. PANCREAS: Unremarkable. SPLEEN: Unremarkable. ADRENAL GLANDS: Unremarkable. KIDNEYS AND URETERS: The kidneys are normal in size, shape, and attenuation. No hydronephrosis, hydroureter, or calculi seen. No perinephric stranding. BLADDER: Unremarkable. GASTROINTESTINAL TRACT: The small and large bowel are unremarkable. Again the appendix is somewhat prominent, with no significant periappendiceal fat stranding. The tip of the appendix is not visualized. ABDOMINAL WALL: No significant hernia is appreciated. LYMPH NODES: 6 prominent mesenteric lymph nodes, most prominent in the right lower quadrant. Small volume of fluid in pelvis. VASCULAR: Unremarkable. PELVIC VISCERA: Unremarkable. OSSEOUS STRUCTURES: Unremarkable. CT/CT abdomen pelvis wo IV con IMPRESSION: 1. Again the appendix is prominent, without significant periappendiceal fat stranding. The tip of the appendix is not visualized. 2. Prominent mesenteric lymph nodes, most prominent in the right lower quadrant, and small volume of fluid in pelvis. These findings are nonspecific and can be seen in the setting of gastroenteritis or early appendicitis. Fleischner guidelines were followed. Electronically signed by: Tomas Torres MD 01/26/2024 08:15 PM EDT
[2024-01-26 19:09] VITALS: BP 123/63; PULSE 60; RESP 18; TEMP 36.6; O2SAT 97; BMI 29.5
--- NOTE | 2024-01-26 19:09 | ED_ITS ---
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 Patient reports he woke up with right lower abdominal pain this morning. He has no associated symptoms including nausea vomiting, diarrhea He does state that he did not have a bowel movement today but does not feel constipated He has no fevers or chills His pain is worse with movement and pushing on the area His pain is currently a 5/10, dull as he has sitting in the stretcher He has no other complaints or concerns at this time Related Data Allergies Allergy/AdvReac Type Severity Reaction Status Date / Time No Known Allergies Allergy Verified 01/26/24 19:10 Review of Systems Constitutional: Denies body ache(s), Denies chills and Denies fever(s) Eyes: Denies blurry vision Denies sore throat Cardiovascular: Denies chest pain and Denies dyspnea Respiratory: Denies cough and Denies dyspnea Gastrointestinal: Reports abdominal pain, Denies diarrhea, Denies nausea and Denies vomiting Musculoskeletal: Denies back pain Skin/Breast: Denies rash PMFSH Past Medical History Medical History Abdominal pain Social History Social History Smoked in Last 30 Days: No Use of substances other than those prescribed or required for medical reasons: No Advance Directives: No Advance Directives Information Provided: No Do you have a plan to hurt others: No Plan Physical Exam ED Vital Signs: Vital Signs - 24 hr 01/26/24 19:09 01/26/24 22:00 Temperature 97.9 F 98.1 F Pulse Rate 60 62 Respiratory Rate 18 16 Blood Pressure 123/63 106/70 Pulse Oximetry 97 97 Oxygen Delivery Method Room Air Room Air BMI result Body Mass Index 29.5 Const General: healthy appearing, comfortable, no acute distress, alert and awake Nutritional Appearance: well nourished Orientation/consciousness: patient oriented x3 HENMT Head: Yes normocephalic and Yes atraumatic Eyes Eyelids: Yes eyelids normal Conjunctivae: conjunctivae normal Sclerae: sclerae normal Corneas: corneas normal Pupils: Equal, round and reactive pupils present EOM: EOMs intact bilaterally Neck Neck: Yes full ROM Resp Effort & Inspection: normal respiratory effort, able to speak in complete sentences and not labored GI Inspection: No distended Palpation (GI): Soft to palpation, not firm, Tenderness to palpation present (GI) in the RLQ and at McBurney's point, no guarding and not rigid Skin General skin exam: no rashes or lesions noted and elasticity normal Neuro General: patient oriented x3 Cranial nerves: Yes Equal, round and reactive pupils present and Yes Bilaterally intact EOM present Cognition (Neuro): normal cognition Extrem Other: Moving all extremities well without any obvious deformities Course Course Course Narrative: This is a Rapid Medical Examination (RME) performed by Tiana Wiley PA-C in triage. Full HPI, ROS, assessment and treatment plan per primary provider in the Main ED. 23-year-old male presents to the ER for evaluation of 2 days of intermittent but worsening right lower quadrant pain. Patient reports pain is currently a 7/10. No associated nausea, vomiting, diarrhea or fevers. Pain is worse with walking or palpation to the area. Patient appears comfortable on triage. His abdomen is soft but he has moderate amount of tenderness right lower quadrant, no rebound or guarding. Normoactive bowel sounds. Plan: Lab work, CT scan Reevaluation(s) Reevaluation #1: Discussed with general surgery, Dr. Laurent who feels that given the patient's right lower quadrant tenderness, trace free fluid in the pelvic and a male, lymphadenopathy with CT findings of prominent appendix, the patient should be admitted for serial abdominal exams and will be treated with IV antibiotics Time: 23:35 Medical Decision Making Medical Decision Making MDM Narrative: 23-year-old male presents for evaluation of a right lower abdominal pain. He does have a white count of 17.9, he is tender in the right lower quadrant, there is negative obturator, negative psoas signs. CT scan shows a prominent appendix and some nonspecific lymphadenopathy worse in the right lower quadrant. Given these findings with the right lower quadrant pain and tenderness a constant we placed to general surgery for acute appendicitis. Differential Diagnosis Differential Diagnoses: The differential diagnosis associated with the presentation includes Acute appendicitis Abdominal pain Gastroenteritis Obstructive uropathy Admission/Observation Consideration of admission/observation: Escalation of care including admission/observation considered Consult Healthcare Provider Management of the patient was discussed with: Mobile Qa Tester (General surgery) Lab Data MDM Lab Attestation statement: I reviewed the patient's lab results. Leukocytosis to 17.9 K. no anemia, normal platelet count. No significant electrolyte abnormalities 01/26/24 19:46 01/26/24 19:46 Labs: Lab Results 01/26/24 01/26/24 Range/Units 19:46 22:05 WBC 17.9 H (4.8-10.8) X10*3/uL RBC 5.53 (4.60-5.80) X10*6/uL Hgb 15.4 (14.0-18.0) g/dl Hct 45.8 (42.0-52.0) % MCV 82.8 (80.0-98.0) fL MCH 27.8 (27.0-33.0) pg MCHC 33.6 (31.0-36.0) g/dl RDW 12.8 (11.0-16.0) % Plt Count 263 D (160-400) X10*3/uL MPV 10.7 (9.4-12.4) fL Immature Gran % (Auto) 0.3 (0.0-0.4) % Neut % (Auto) 90.7 H (45-73) % Lymph % (Auto) 5.5 L (20-40) % Gaines % (Auto) 3.2 (2-11) % Eos % (Auto) 0.1 (0-4) % Baso % (Auto) 0.2 (0-2) % Lymph # (Auto) 1.0 L (1.2-4.9) X10*3/uL Gaines # (Auto) 0.6 (0.1-1.2) X10*3/uL Eos # (Auto) 0.0 (0.0-0.4) X10*3/uL Baso # (Auto) 0.0 (0.0-0.2) X10*3/uL Abs Immat Gran (auto) 0.05 H (0.00-0.03) X10*3/uL Absolute Neuts (auto) 16.2 H (2.0-8.3) x10*3/uL Absolute Nucleated RBC 0.000 (0.0-0.012) X10*3/uL Nucleated RBC % (auto) 0.0 (0.0-0.2) /100WBC Smear Tech's Comments VERIFIED Sodium 141 (135-145) mmol/L Potassium 3.9 (3.3-5.1) mmol/L Chloride 107 (96-108) mmol/L Carbon Dioxide 27 (22-29) mmol/L Anion Gap 11 L (12-20) BUN 9 (9-16) mg/dL Creatinine 1.00 (0.5-1.4) mg/dL Estim Creat Clear Calc 105.4 Estimated GFR > 60 Random Glucose 109 (60-115) mg/dL Calcium 10.2 D (8.4-10.2) mg/dL Magnesium 2.1 (1.6-2.6) mg/dL Total Bilirubin 0.4 (0.0-1.0) mg/dL Direct Bilirubin 0.2 (0.0-0.5) mg/dL AST 24 (5-37) U/L ALT 29 (0-40) U/L Alkaline Phosphatase 212 H (39-117) U/L Total Protein 8.1 H (6.5-8.0) g/dL Albumin 4.5 (3.5-5.0) g/dL Lipase 13 (8-78) U/L Urine Color Yellow Urine Appearance Clear Urine pH 5.5 (5.0-9.0) Ur Specific [place] 1.025 (1.005-1.025) Urine Protein Negative (Neg-Trace) mg/dL Urine Glucose (UA) Negative (Negative) mg/dL Urine Ketones Trace (Negative) mg/dL Urine Blood Negative (Negative) Urine Nitrite Negative (Negative) Ur Leukocyte Esterase Negative (Negative) Discharge Plan Discharge Clinical Impression: Abdominal pain Patient Disposition: Admitted As Inpatient Print Language: Occitan
[2024-01-26 19:57] LABS: Basophils Percent Auto 0.2 % (0-2); Eosinophils Percent Auto 0.1 % (0-4); Hematocrit 45.8 % (42.0-52.0); Hemoglobin 15.4 g/dl (14.0-18.0); Imm Gran Abs Auto 0.05 X10*3/uL (0.00-0.03); Imm Gran Pct Auto 0.3 % (0.0-0.4); Lymphocytes Percent Auto 5.5 % (20-40); MANUAL DIFF FLAG SCAN; Mean Corpuscular HGB Conc 33.6 g/dl (31.0-36.0); Mean Corpuscular Hemoglobin 27.8 pg (27.0-33.0); Mean Corpuscular Volume 82.8 fL (80.0-98.0); Mean Platelet Volume 10.7 fL (9.4-12.4); Monocytes Absolute Auto 0.6 X10*3/uL (0.1-1.2); Monocytes Percent Auto 3.2 % (2-11); Neutrophils Absolute Auto 16.2 x10*3/uL (2.0-8.3); Neutrophils Percent Auto 90.7 % (45-73); Platelet Count 263 X10*3/uL (160-400); Red Blood Count 5.53 X10*6/uL (4.60-5.80); Red Cell Distribution Width 12.8 % (11.0-16.0); SCAN SMEAR FLAG 1; White Blood Count 17.9 X10*3/uL (4.8-10.8)
[2024-01-26 20:15] LABS: Alanine Aminotransferase 29 U/L (0-40); Albumin Level 4.5 g/dL (3.5-5.0); Alkaline Phosphatase 212 U/L (39-117); Anion Gap 11 (12-20); Aspartate Amino Transferase 24 U/L (5-37); Bilirubin Direct 0.2 mg/dL (0.0-0.5); Bilirubin Total 0.4 mg/dL (0.0-1.0); Blood Urea Nitrogen 9 mg/dL (9-16); Calcium 10.2 mg/dL (8.4-10.2); Carbon Dioxide 27 mmol/L (22-29); Chloride 107 mmol/L (96-108); Creatinine Clr Calc Pharmacy 105.4; Estimated Glomerular Filt Rate > 60; Glucose Random 109 mg/dL (60-115); Lipase 13 U/L (8-78); Magnesium 2.1 mg/dL (1.6-2.6); Potassium 3.9 mmol/L (3.3-5.1); Sodium 141 mmol/L (135-145); Total Protein 8.1 g/dL (6.5-8.0)
[2024-01-26 20:42] LABS: SLIDE REVIEW VERIFIED
[2024-01-26 22:00] VITALS: BP 106/70; PULSE 62; RESP 16; TEMP 36.7; O2SAT 97
[2024-01-26 22:13] LABS: Appearance Urine Clear; Color Urine Yellow; Glucose Urine UA Negative (Negative); Leukocyte Esterase Urine Negative (Negative); Nitrite Urine Negative (Negative); PH 5.5 (5.0-9.0); Specific Gravity - Urine 1.025 (1.005-1.025); Urine Blood Negative (Negative); Urine Ketones Trace mg/dL (Negative); Urine Protein Negative (Neg-Trace)
[2024-01-26] MEDS: Piperacillin Sodium/Tazobactam 3.375 GM in 0.9 % Sodium Chloride 50 ML IV (23:44)
[2024-01-26] MEDS: 0.9 % Sodium Chloride Flush 3 ML SYRINGE IVFLUSH (23:44)
[2024-01-27] MEDS: Ketorolac Tromethamine 15 MG/ML VIAL IVPUSH ×4 (01:08→17:35)
[2024-01-27 05:00] LABS: Basophils Absolute Auto 0.1 X10*3/uL (0.0-0.2); Basophils Percent Auto 0.4 % (0-2); Eosinophils Absolute Auto 0.1 X10*3/uL (0.0-0.4); Eosinophils Percent Auto 0.9 % (0-4); Hematocrit 43.5 % (42.0-52.0); Hemoglobin 14.6 g/dl (14.0-18.0); Imm Gran Abs Auto 0.05 X10*3/uL (0.00-0.03); Imm Gran Pct Auto 0.4 % (0.0-0.4); Lymphocytes Absolute Auto 2.6 X10*3/uL (1.2-4.9); MANUAL DIFF FLAG NO; Mean Corpuscular HGB Conc 33.6 g/dl (31.0-36.0); Mean Corpuscular Hemoglobin 27.7 pg (27.0-33.0); Mean Corpuscular Volume 82.5 fL (80.0-98.0); Mean Platelet Volume 10.7 fL (9.4-12.4); Monocytes Absolute Auto 0.7 X10*3/uL (0.1-1.2); Monocytes Percent Auto 5.6 % (2-11); Neutrophils Absolute Auto 8.4 x10*3/uL (2.0-8.3); Neutrophils Percent Auto 70.7 % (45-73); Platelet Count 232 X10*3/uL (160-400); Red Blood Count 5.27 X10*6/uL (4.60-5.80); Red Cell Distribution Width 12.8 % (11.0-16.0); White Blood Count 11.9 X10*3/uL (4.8-10.8)
[2024-01-27 06:00] VITALS: BP 117/55; PULSE 59; RESP 18; TEMP 36.8; O2SAT 95
--- NOTE | 2024-01-27 08:10 | P.HPGS_ITS ---
History of Present Illness History of Present Illness Date of Service: 01/27/24 <Val Sanchez PA-C - Last Filed: 01/27/24 08:32> 01/27/24 <Ra Gallo MD - Last Filed: 01/27/24 09:58> Chief complaint: Abdo Pain <Val Sanchez PA-C - Last Filed: 01/27/24 08:32> Narrative: Scott Vaughn is a 23 year old male with no significant PMH who was in his usual state of health when he developed acute onset of RLQ abdominal pain 2 days ago. The pain was severe and sharp in nature and persisted, prompting him to seek care in the ED for evaluation. Work up in the ED included CBC, BMP, LFTs which was significant for a leukocytosis of 17.9 improved to 11.[address] scan abd/pelvis was obtained which showed prominent appendix without significant periappendiceal fat stranding with prominent mesenteric lymph nodes in the RLQ. He had a similar episode of pain 2 years prior. He denies fever, chills, nausea, vomiting, diarrhea, sick contacts, recent travel. He feels improved this morning and his pain is less severe. He is hungry and would like to eat. <Val Sanchez PA-C - Last Filed: 01/27/24 08:32> Review of Systems Constitutional: Constitutional: Denies chills and Denies fever(s) <Val Sanchez PA-C - Last Filed: 01/27/24 08:32> ENT: Denies dizziness <RAYMUNDO Hemphill Last Filed: 01/27/24 08:32> Cardiovascular: Cardiovascular: Denies chest pain and Denies dyspnea <Val Sanchez PA-C - Last Filed: 01/27/24 08:32> Respiratory: Respiratory: Denies cough and Denies dyspnea <RAYMUNDO Hemphill Last Filed: 01/27/24 08:32> Gastrointestinal: Gastrointestinal: Reports as per HPI, Denies melena, Denies hematochezia and Denies change in bowel habits <RAYMUNDO Hemphill Last Filed: 01/27/24 08:32> Genitourinary: Genitourinary: Denies dysuria <Val Sanchez PA-C - Last Filed: 01/27/24 08:32> Integumentary/Breasts: Skin/Breast: Denies rash <Val Sanchez PA-C - Last Filed: 01/27/24 08:32> Neurologic: Denies dizziness <Val Sanchez PA-C - Last Filed: 01/27/24 08:32> [facility] Past Medical History Medical History: Medical History (Updated 01/26/24 @ 22:30 by Trey Butler) Abdominal pain <Val Sanchez PA-C - Last Filed: 01/27/24 08:32> Surgical History Surgical History: Surgical History (Updated 01/27/24 @ 08:17 by Val Sanchez PA-C) Status post orchiopexy <Val Sanchez PA-C - Last Filed: 01/27/24 08:32> Social History Social History: Social History Smoked in Last 30 Days: No Use of substances other than those prescribed or required for medical reasons: No Advance Directives: No Advance Directives Information Provided: No Do you have a plan to hurt others: No Plan <Val Sanchez PA-C - Last Filed: 01/27/24 08:32> Meds Allergies/Adverse reactions: Allergies Allergy/AdvReac Type Severity Reaction Status Date / Time No Known Allergies Allergy Verified 01/26/24 19:10 <Val Sanchez PA-C - Last Filed: 01/27/24 08:32> Active Medications: Current Medications Acetaminophen (Acetaminophen 325 Mg Tablet) 650 mg PO Q6H PRN PRN Reason: Pain, Mild (Pain Scale 1-3), fever or headache Calcium Carbonate (Calcium Carbonate 750 Mg Tab.Chew) 750 mg PO Q4H PRN PRN Reason: Heartburn Piperacillin Sod/Tazobactam (Sod 3.375 gm/ Sodium Chloride) 50 mls @ 100 mls/hr IV Q6H YAKELIN Ketorolac Tromethamine (Ketorolac Tromethamine 15 Mg/Ml Vial) 15 mg IVPUSH Q6H YAKELIN Stop: 02/01/24 00:00 Last Admin: 01/27/24 06:13 Dose: 15 mg Magnesium Hydroxide (Milk Of Magnesia 30 Ml Oral.Susp) 30 ml PO DAILY PRN PRN Reason: Constipation Melatonin (Melatonin 3 Mg Tablet) 6 mg PO BEDTIME PRN PRN Reason: Insomnia Morphine Sulfate (Morphine Sulfate 2 Mg/Ml Cartridge) 2 mg IVPUSH Q4H PRN; P rotocol PRN Reason: Perineal Discomfort Ondansetron HCl (Ondansetron Hcl 4 Mg/2 Ml Vial) 4 mg IVPUSH Q8H PRN PRN Reason: Nausea and Vomiting Sodium Chloride (0.9 % Sodium Chloride Flush 3 Ml Syringe) 3 ml IVFLUSH QSHIFT [facility] Last Admin: 01/27/24 07:19 Dose: Not Given <RAYMUNDO Hemphill Last Filed: 01/27/24 08:32> Physical Exam Vital Signs: Vital Signs: Last Vital Signs Temp 98.3 F 01/27/24 06:00 Pulse 59 01/27/24 06:00 Resp 18 01/27/24 06:00 BP 117/55 L 01/27/24 06:00 Pulse Ox 95 01/27/24 06:00 O2 Del Method Room Air 01/27/24 06:00 BMI result Body Mass Index 29.5 <RAYMUNDO Hemphill Last Filed: 01/27/24 08:32> Const: General: comfortable, no acute distress and alert <RAYMUNDO Hemphill Last Filed: 01/27/24 08:32> Orientation/consciousness: patient oriented x3 <RAYMUNDO Hemphill Last Filed: 01/27/24 08:32> Resp: Effort & Inspection: normal respiratory effort <RAYMUNDO Hemphill Last Filed: 01/27/24 08:32> Cardio: Rate: regular rate <RAYMUNDO Hemphill Last Filed: 01/27/24 08:32> GI: Inspection: Yes normal to inspection, No distended, No scar and No visible herniation <RAYMUNDO Hemphill Last Filed: 01/27/24 08:32> Palpation (GI): Soft to palpation, Tenderness to palpation present (GI) (mild RLQ ) with no rebound tenderness and Rovsing's sign negative, no guarding and not rigid <Val Sanchez PA-C Last Filed: 01/27/24 08:32> Percussion: Yes normal to percussion <RAYMUNDO Hemphill Last Filed: 01/27/24 08:32> Skin: General skin exam: no rashes or lesions noted and no jaundice <RAYMUNDO Hemphill Last Filed: 01/27/24 08:32> Neuro: General: patient oriented x3 and moves all extremities <RAYMUNDO Hemphill Last Filed: 01/27/24 08:32> Results Results Labs: Short CBC 01/26/24 01/27/24 Range/Units 19:46 04:30 WBC 17.9 H 11.9 H (4.8-10.8) X10*3/uL Hgb 15.4 14.6 (14.0-18.0) g/dl Hct 45.8 43.5 (42.0-52.0) % Plt Count 263 D 232 (160-400) X10*3/uL BMP 01/26/24 19:46 Sodium 141 Potassium 3.9 Chloride 107 Carbon Dioxide 27 BUN 9 Creatinine 1.00 Calcium 10.2 D Liver Function 01/26/24 Range/Units 19:46 Total Bilirubin 0.4 (0.0-1.0) mg/dL Direct Bilirubin 0.2 (0.0-0.5) mg/dL AST 24 (5-37) U/L ALT 29 (0-40) U/L Alkaline Phosphatase 212 H (39-117) U/L Albumin 4.5 (3.5-5.0) g/dL Urine 01/26/24 Range/Units 22:05 Urine Color Yellow Urine Appearance Clear Urine pH 5.5 (5.0-9.0) Ur Specific [place] 1.025 (1.005-1.025) Urine Protein Negative (Neg-Trace) mg/dL Urine Glucose (UA) Negative (Negative) mg/dL <RAYMUNDO Hemphill Last Filed: 01/27/24 08:32> Abdomen CT scan report/results: report reviewed and image reviewed <Val Sanchez PA-C - Last Filed: 01/27/24 08:32> Assessment and Plan (1) Right lower quadrant pain: Status: Acute <Val Sanchez PA-C - Last Filed: 01/27/24 08:32> He currently feels much better Still with some tenderness on right lower quadrant but much improved Exam very benign I have reviewed his CAT scan - appendix a little prominent but no inflammatory changes; there was note of some prominent lymph nodes as well in the right lower quadrant on the mesentery Overall findings not suggestive of appendicitis WBC much improved Okay to have clear liquids and advance as tolerated May need to have a follow-up CT scan in a few weeks Seen and examined independently <Ra Gallo MD - Last Filed: 01/27/24 09:58> 23 year old healthy male presenting with acute onset RLQ abd pain for [address] scan shows prominent appendix without significant surrounding inflammatory changes with prominent RLQ lymph nodes similar to scan 2 years prior. He has improved symptomatically and his leukocytosis has also improved this morning. His abdomen is very benign with mild RLQ tenderness without peritoneal signs. Clinical picture not suggestive of acute appendicitis, possibly secondary to enteritis. Will cont supportive measures for now with IV abx and clear liquids and advance further as tolerated if pain continues to improve. Patient comfortable with plan. <Val Sanchez PA-C - Last Filed: 01/27/24 08:32> Quality Stroke Does the patient have a stroke diagnosis?: No <Val Sanchez PA-C - Last Filed: 01/27/24 08:32> VTE Prior VTE?: No <Val Sanchez PA-C - Last Filed: 01/27/24 08:32> VTE Risk Level:: Surgical - low <Val Sanchez PA-C - Last Filed: 01/27/24 08:32> VTE Device Contraindication: N/A - Device Ordered <Val Sanchez PA-C - Last Filed: 01/27/24 08:32> VTE Drug Contraindication: Treatment Not Indicated <Val Sanchez PA-C - Last Filed: 01/27/24 08:32> Procedures Date of Service Date of Service: 01/27/24 <Val Sanchez PA-C - Last Filed: 01/27/24 08:32> 01/27/24 <Ra Gallo MD - Last Filed: 01/27/24 09:58>
[2024-01-27] MEDS: Piperacillin Sodium/Tazobactam 3.375 GM in 0.9 % Sodium Chloride 50 ML IV ×3 (08:22→20:21)
--- NOTE | 2024-01-27 10:57 | PHA.MEDREC ---
Addendum entered by Fermin Trevino RPh 01/27/24 11:09: Med rec was reviewed by [facility]. Original Note: Pharmacy Consult ? Medication Reconciliation Pharmacy has completed the medication reconciliation. Spoke to patient through savings teller service ( [place]). Patient states he is not taking any medications.
--- NOTE | 2024-01-27 11:58 | MHC.CM.PN ---
pt lives with he is independent has own ride home dc plan home no servies
--- NOTE | 2024-01-27 14:03 | PC.NURSE ---
pt a&ox3, pt denying pain/discomfort at this time, vss, iv abx hung per order, rr equal/non labored, family at bedside, call maloney within reach, will continue to monitor
[2024-01-27 14:41] VITALS: BP 120/67; PULSE 60; RESP 16; TEMP 37; O2SAT 97
--- NOTE | 2024-01-27 14:53 | PM.EVENT ---
Event Note Date of Service: 01/27/24 Event Note: Seen on afternoon rounds Continues to feel better Says his pain is practically gone Abdomen remained soft, benign, very minimal tenderness to deep palpation on the right side Continue clear liquids Plan to advance diet in the morning and discharge home if he tolerates this Family at bedside Time Spent With Patient Time: Total time managing care of this patient today ____ minutes.
[2024-01-27] MEDS: 0.9 % Sodium Chloride Flush 3 ML SYRINGE IVFLUSH ×2 (14:56→20:21)
[2024-01-27 16:51] VITALS: BMI 29.5
[2024-01-27 17:13] VITALS: BP 108/54; PULSE 80; RESP 18; TEMP 36.6; O2SAT 98
[2024-01-27 19:45] VITALS: BP 111/52; PULSE 55; RESP 20; TEMP 36.2; O2SAT 98
[2024-01-28] MEDS: Piperacillin Sodium/Tazobactam 3.375 GM in 0.9 % Sodium Chloride 50 ML IV ×2 (01:50→07:42)
[2024-01-28] MEDS: Ketorolac Tromethamine 15 MG/ML VIAL IVPUSH ×2 (01:52→12:20)
[2024-01-28 03:21] VITALS: BP 115/56; PULSE 63; RESP 20; TEMP 36.3; O2SAT 96
[2024-01-28 07:58] VITALS: BP 109/58; PULSE 52; RESP 17; TEMP 36.1; O2SAT 98
[2024-01-28 08:38] LABS: Glucose, Whole Blood 97 mg/dL (60-115)
--- NOTE | 2024-01-28 08:42 | P.PNGS_ITS ---
Subjective Subjective Date of Service: 01/28/24 Interval history: Feels much better Denies pain Passing flatus Tolerating liquids Physical Exam 2 Vital Signs: Vital Signs: Last Vital Signs Temp 97.0 F 01/28/24 07:58 Pulse 52 01/28/24 07:58 Resp 17 01/28/24 07:58 BP 109/58 L 01/28/24 07:58 Pulse Ox 98 01/28/24 07:58 O2 Del Method Room Air 01/28/24 07:58 BMI result Body Mass Index 29.5 Const: General: comfortable and no acute distress Resp: Effort & Inspection: normal respiratory effort Cardio: Rate: regular rate GI: Palpation (GI): Soft to palpation, not firm, nontender and no guarding Objective Data Active Medications Acetaminophen (Acetaminophen 325 Mg Tablet) 650 mg PO Q6H PRN PRN Reason: Pain, Mild (Pain Scale 1-3), fever or headache Calcium Carbonate (Calcium Carbonate 750 Mg Tab.Chew) 750 mg PO Q4H PRN PRN Reason: Heartburn Piperacillin Sod/Tazobactam (Sod 3.375 gm/ Sodium Chloride) 50 mls @ 100 mls/hr IV Q6H [facility] [place] Last Infusion: 01/28/24 08:42 Dose: Infused Documented By: GUERLINE Ketorolac Tromethamine (Ketorolac Tromethamine 15 Mg/Ml Vial) 15 mg IVPUSH Q6H [facility] Stop: 02/01/24 00:00 Last Admin: 01/28/24 06:11 Dose: Not Given Documented By: COLTON Non-Admin Reason: Patient Asleep Magnesium Hydroxide (Milk Of Magnesia 30 Ml Oral.Susp) 30 ml PO DAILY PRN PRN Reason: Constipation Melatonin (Melatonin 3 Mg Tablet) 6 mg PO BEDTIME PRN PRN Reason: Insomnia Morphine Sulfate (Morphine Sulfate 2 Mg/Ml Cartridge) 2 mg IVPUSH Q4H PRN; Protocol PRN Reason: Perineal Discomfort Ondansetron HCl (Ondansetron Hcl 4 Mg/2 Ml Vial) 4 mg IVPUSH Q8H PRN PRN Reason: Nausea and Vomiting Sodium Chloride (0.9 % Sodium Chloride Flush 3 Ml Syringe) 3 ml IVFLUSH QSHIFT [facility] [place] Last Admin: 01/27/24 20:21 Dose: 3 ml Documented By: COLTON Labs 01/27/24 04:30 01/26/24 19:46 Labs: Laboratory Results - last 24 hr 01/28/24 08:33 POC Glucose 97 Procedures Date of Service Date of Service: 01/28/24 Progress Note: A&P Assessment and plan (1) Abdominal pain: Status: Acute Assessment and Plan: Abdominal pain has resolved Looks well Nontender No fever Clinically not appendicitis Diet as tolerated Possible home today Etiology uncertain - question enteritis? Time Spent With Patient Time: Total time managing care of this patient today ____ minutes. Quality Stroke Does the patient have a stroke diagnosis?: No VTE Prior VTE?: No VTE Risk Level:: Surgical - low VTE Device Contraindication: N/A - Device Ordered VTE Drug Contraindication: Treatment Not Indicated
--- NOTE | 2024-01-28 12:24 | MHC.CM.PN ---
Patient medically cleared for dc home self care. Girlfriend to transport.
--- NOTE | 2024-01-28 15:47 | PM.DS ---
DS: Providers Provider Date of Service: 01/28/24 Date of admission: 01/26/24 23:29 Date of discharge: 01/28/24 Primary care physician: Eric Physician Attending physician on admission: Ra Gallo Attending physician on discharge: Ra Gallo DS: Diagnosis Discharge Diagnosis (1) Abdominal pain: Status: Acute DS: Summary Hospital Course Hospital Course: HPI AT ADMISSION: Scott Vaughn is a 23 year old male with no significant PMH who was in his usual state of health when he developed acute onset of RLQ abdominal pain 2 days ago. The pain was severe and sharp in nature and persisted, prompting him to seek care in the ED for evaluation. Work up in the ED included CBC, BMP, LFTs which was significant for a leukocytosis of 17.9 improved to 11.[address] scan abd/pelvis was obtained which showed prominent appendix without significant periappendiceal fat stranding with prominent mesenteric lymph nodes in the RLQ. He had a similar episode of pain 2 years prior. He denies fever, chills, nausea, vomiting, diarrhea, sick contacts, recent travel. He feels improved this morning and his pain is less severe. He is hungry and would like to eat. HOSPITAL COURSE: He was admitted to the surgical service for observation in light of the CT scan findings , leukocytosis. He was started on IV abx empirically. He overall felt much improved when seen and had a very benign exam with improvement in his WBC count. There was no inflammatory changes surrounding the appendix and etiology pain was uncertain however overall findings not suggestive of appendicitis. He was started on clear liquids. The following day he felt improved with resolution of his abdominal pain. He was advanced to a solid diet. He felt back to baseline and was tolerating a solid diet later that day with a benign abd exam and was discharged to home on 01/28/24 in stable condition. He is to f/u with his PCP upon discharge. Status at Discharge Functional status at discharge: independent ambulation Overall status at discharge: patient is back to baseline Time Attestation Discharge Coordination Time (in mins): 30 Quality: Safe Use of Opioids Does Pt have an Active Cancer Diagnosis on the Problem List?: No Quality: Stroke Does the patient have a stroke diagnosis?: No Physical Exam Vital Signs: Vital Signs: Last Vital Signs Temp 97.0 F 01/28/24 07:58 Pulse 52 01/28/24 07:58 Resp 17 01/28/24 07:58 BP 109/58 L 01/28/24 07:58 Pulse Ox 98 01/28/24 07:58 O2 Del Method Room Air 01/28/24 07:58 BMI result Body Mass Index 29.5 Const: General: comfortable, no acute distress and alert Orientation/consciousness: patient oriented x3 Resp: Effort & Inspection: normal respiratory effort GI: Inspection: No distended Palpation (GI): Soft to palpation and nontender Neuro: General: patient oriented x3 Discharge Plan Discharge Anticipated Discharge Date/Time: 01/28/24 11:00 Patient Disposition: Home, Self-Care Discharge Diagnosis: RLQ abdominal pain Referrals: Physician,Eric J [Primary Care Provider] - 1 Week Discharge Medications: No Action No Known Home Meds Discharge Orders: Discharge Order (Routine); Ordered 01/28/24 Ordered By: Val Sanchez Diet: Advance to usual diet Activity on Discharge: As tolerated Stand Alone Forms: Patient Portal Discharge page Print Language: Togolese Activity Restrictions/Additional Instructions: Follow up with your PCP. Call Your Doctor Or Return To ED If: ? ? -Your temperature exceeds 101.5? F? ? ? -You experience excessive pain or swelling ? ? -You have an unexpected reaction to medication ? ? -You experience continued vomiting/nausea Care Plan Goals: Return to baseline. Resume normal activities. Health Concerns: abdominal pain possible enteritis Plan of Treatment: discharge to home f/u with PCP return to ED if pain returns Assessment: Improved Discharge Date/Time: 01/28/24 12:59
== END 2024-01-28 12:59 | disposition home or self-care (01) | DRG 251 ==
LOC: HO.ED 23:35 → HO.EDOVER 23:35 → HO.S3 01-27 16:05
PROVIDERS: Physician Assistant; Admitting Provider Surgery; Emergency Provider Emergency Medicine; Visit Provider Surgery
DX: R10.31 Right lower quadrant pain (principal)
CPT/HCPCS: 36415; 74176; 80048; 80076; 81003; 82947; 83690; 83735; 85025; 99285; J1885; J2543

== ENCOUNTER → 2024-01-26 23:29 | Outpatient (BNV) | payer MEDICAID, SELFPAY | PROVIDERS: Admitting Provider Surgery; Emergency Provider Emergency Medicine; Visit Provider Physician Assistant Surgical | DX: R10.9 Unspecified abdominal pain (principal) | CPT/HCPCS: 99222; 99238; 99499 ==

== ENCOUNTER 2024-02-12 18:11 | Emergency (ER) | payer MEDICAID, SELFPAY ==
--- NOTE | ~2024-02-12 | XR_ITS ---
EXAMINATION: XR KNEE, LEFT CLINICAL INFORMATION: Twisted knee COMPARISON: None available. TECHNIQUE: Four views of the left knee. FINDINGS: Small joint effusion. Alignment is anatomic. Joint spaces are maintained. Chondrocalcinosis. XR/XR knee LT 4V IMPRESSION: Small joint effusion. Electronically signed by: Elina Wagner MD 02/12/2024 08:36 PM EDT
[2024-02-12 19:23] VITALS: BP 114/78; PULSE 64; RESP 16; TEMP 36.9; O2SAT 99; BMI 30.3
--- NOTE | 2024-02-12 19:24 | ED.LOWEXIN ---
HPI - Extremity Injury (Lower) General Chief Complaint: Extremity Problem Stated Complaint: LT knee inj Time Seen by Provider: 02/12/24 19:51 Source: patient Mode of arrival: ambulatory Limitations: no limitations History of Present Illness HPI Narrative: Patient is a 23-year-old male who presents emergency department for evaluation of left knee pain. Partial playing basketball he who is a certain way resulting in a twisting injury to the knee heard a pop and then felt movement of his knee shifting back and forth. Has antalgic gait, pain increases with weight-bearing. Developing localized swelling to the medial aspect of the knee. Denies numbness tingling or cold sensation to the foot Related Data Home Medications ?Medication ?Instructions ?Recorded ?Confirmed No Known Home Meds 01/27/24 01/27/24 Allergies Allergy/AdvReac Type Severity Reaction Status Date / Time No Known Allergies Allergy Verified 02/12/24 19:26 Review of Systems Review of Systems: Yes all other systems are reviewed and are negative PMFSH Past Medical History Attestation statement: The following information was validated with the patient. Source: old records reviewed Medical History Abdominal pain Surgical History Status post orchiopexy Social History Social History Household Members: Spouse Housing: Apartment Do you presently have visiting nurse or other home services: No Patient Tobacco Use Status: Never used Tobacco Advance Directives: No Advance Directives Information Provided: No service: No Physical Exam Vital Signs: Vital Signs: Last Vital Signs Temp 98.2 F 02/12/24 21:29 Pulse 68 02/12/24 21:29 Resp 16 02/12/24 21:29 BP 118/62 02/12/24 21:29 Pulse Ox 99 02/12/24 21:29 O2 Del Method Room Air 02/12/24 21:29 BMI result Body Mass Index 30.3 Appearance: Alert.?Oriented to person, place and time. No acute distress.?Normal affect. CVS: Heart sounds normal. Normal heart rate and rhythm.? Pulses normal.?? Respiratory: No respiratory distress.? Lung sounds clear to auscultation bilaterally?? Abdomen: Soft and non-tender. Normoactive bowel sounds. Skin: Skin warm and dry.? Normal skin color.? Extremities: No lower extremity edema.? No calf ttp. Small effusion to the left knee, no laxity on examination, anterior drawer/posterior drawer/varus stress test negative. Positive valgus stress test. Palpable tenderness along the medial aspect of the knee. 2+ DP/PT pulse Neuro: Moves all extremities spontaneously. Sensation intact bilaterally. Ambulates with antalgic gait. Course Course Course Narrative: This is a Rapid Medical Examination (RME) performed by Kelvin Calderon PA-C in triage. Full HPI, ROS, assessment and treatment plan per primary provider in the Main ED. 23 yo male here for eval of left knee pain x1.5 hours. states that while playing basketball her twisted his left knee, heard a pop, and felt his knee shift, then shift back . no hx of knee dislocation. able to ambulate w/ discomfort. + limping gait. now using wheelchair. noted swelling to L knee. NV intact distally. Plan: XR Medical Decision Making Medical Decision Making MDM Narrative: Patient is a 23-year-old male presents emergency department for evaluation of traumatic left knee pain as per HPI. Pertinent physical exam findings as per PE portion of this note. Extremities neurovascularly intact distally, no obvious deformity. XR is without acute osseous abnormality, notable small joint effusion is appreciated on examination as well. We will place Tomy bandage for compression, provide a knee immobilizer and crutches and outpatient follow-up with orthopedics. Advised strict return precautions, conservative treatment. All questions answered Differential Diagnosis Differential Diagnoses: The differential diagnosis associated with the presentation includes (Fracture, dislocation, knee sprain; MCL tear, meniscus injury) Independent Interpretation I performed an independent interpretation of an: Plain X-Ray (No acute fracture) Radiology Impression Discussion of test interpretation with radiology: I have reviewed the radiologist's reading. Radiologist Impression: XR/XR knee LT 4V IMPRESSION: Small joint effusion. External Record Review External record reviewed: Outpatient record Tests considered The following testing was considered but not selected: No neurovascular compromise, no indication for emergent MRI Prescription Management I considered prescription management with: Pain Medication (Acetaminophen/ibuprofen) Discharge Plan Discharge Clinical Impression: Knee sprain Patient Disposition: Home, Self-Care Instructions: Knee Sprain (ED), Crutch Instructions (ED), How to Use an Elastic Bandage (ED), R.I.C.E. Treatment (ED) Additional Instructions: Use Tomy bandage for compression to prevent further swelling to the knee joint. Use the knee immobilizer with crutches when ambulating, you may put weight on the leg as tolerated. If you have significant pain, refrain from putting weight on it You can take ibuprofen 200 mg, 3 tablets (600mg) every 6-8 hours as needed for pain, in addition to Tylenol 500 mg, 2 tablets (1,000mg) every 4-6 hours as needed for pain, but not to exceed 3 doses daily (3,000mg).? Apply ice to the area for 10-15 minutes 3-4 times daily. Contact the Orthopedics office next week if you continue to have pain Prescriptions: No Action No Known Home Meds [place]: [facility] [place] Group] Interventions: ED Discharge Assessment Last Done: 02/12/24 21:29 Discharge Date/Time: 02/12/24 21:35 Print Language: Kyrgyz
[2024-02-12 21:29] VITALS: BP 118/62; PULSE 68; RESP 16; TEMP 36.8; O2SAT 99
== END 2024-02-12 21:35 | disposition home or self-care (01) ==
PROVIDERS: Emergency Provider Internal Medicine
DX: S83.92XA Sprain of unspecified site of left knee, initial encounter (principal); X50.1XXA Overexertion from prolonged static or awkward postures, initial encounter; Y93.67 Activity, basketball; Y92.310 Basketball court as the place of occurrence of the external cause; Y99.9 Unspecified external cause status
CPT/HCPCS: 73564; 99282; 99283

== ENCOUNTER 2024-03-02 08:14 | Outpatient (REF) | payer MEDICAID, SELFPAY | END 2024-03-02 08:15 | disposition home or self-care (01) | LOC: HO.HOSX 08:14 | PROVIDERS: Visit Provider Physician Assistant | DX: M25.562 Pain in left knee (principal); M25.561 Pain in right knee; S83.002A Unspecified subluxation of left patella, initial encounter | CPT/HCPCS: 73560; 99212 ==

== ENCOUNTER 2024-03-02 10:48 | Outpatient (AMB) | payer MEDICAID, SELFPAY ==
--- NOTE | 2024-03-02 10:55 | MHC.OFFVIS ---
Vital Signs 03/02/24 10:59 Height 5 ft 8 in Weight 199 lb BMI 30.3 Intake Visit Reasons: [employer]- E/D f/u Lt Knee sprain Intake Note: Scott a 23 year old male who presents today for a new patient evaluation of a left knee sprain, DOI 02/12/24. Patient reports that he was playing basketball, he went up for a lay up and felt his knee cap shift and popped back in place when he came back down causing him to fall. He presented to [facility] the same day were x-rays were taken. Currently he has pain with extension, located below his knee cap towards the lateral side. He also has pain with flexion located at the anterior aspect of knee. Denies numbness or tingling. Allergies No Known Allergies Allergy (Verified 03/02/24 10:57) Medication List - Last Reconciled 03/02/24 by Haider Husain PA-C No Known Home Meds HPI HPI [employer]- E/D f/u Lt Knee sprain: Details: 23-year-old male presents to the office today for an injury he sustained to his left knee while playing basketball. He states he was going up for a lay-up as he was coming down he felt his kneecap shift and he fell. This occured on 02/12/24. He states when he fell onto the floor he felt the patella go back in. He states he was able to get up and walker after the incident. He states he did not have swelling. He states he has some difficulty with bending and pain along the lateral and anterior aspect of the knee. He states the knee does not feel unstable. [facility] Medical History Abdominal pain Surgical History Status post orchiopexy Social History (Updated 03/02/24 @ 10:57 by BABITA Gamez) Household Members: Spouse Housing: Apartment Do you presently have visiting nurse or other home services: No Patient Tobacco Use Status: Never used Tobacco service: No Current occupational status: unemployed Review of Systems Const All systems reviewed & are unremarkable except as noted in HPI and below Physical Exam Vital Signs: BMI result Body Mass Index 30.3 Const General: cooperative and no acute distress Orientation/consciousness: patient oriented x3 Resp Effort & Inspection: normal respiratory effort and able to speak in complete sentences Cardio Peripheral pulses: Peripheral pulses 2+ throughout Neuro General: patient oriented x3 Extrem Other: Left knee normal to inspection. There is mild joint effusion present. He can fully extend and flex the knee without discomfort. Mild lateral retropatellar tenderness present. He has mild discomfort with patellar grind. No ligamentous laxity. Calf supple nontender neurovascularly intact. Results Reviewed Results Reviewed: X-rays of the left knee obtained in the office today negative for any acute or chronic abnormalities. Assessment & Plan Assessment & Plan (1) Subluxation of left patella: Code(s): S83.002A - Unspecified subluxation of left patella, initial encounter Category: Medical Plan: We discussed options today which include physical therapy. I also recommend a knee brace with stability however he states he has 1 already. I did give him a prescription for ibuprofen to take 3 times a day for the next 2 weeks to help with inflammation. If symptoms persist or worsen he will contact our office otherwise follow up as needed. Orders: Orders XR knee LT 2V Today M25.562 - Pain in left knee PT Evaluation and Treatment Today S83.002A - Unspecified subluxation of left patella, initial encounter XR knee RT 1V Today M25.561 - Pain in right knee Medications: New ibuprofen 800 mg PO Q8H PRN 90 tabs 3RF pain 30 days S52.209D - Unspecified fracture of shaft of unspecified ulna, subsequent encounter for closed fracture with routine healing Coding Level of Care Code New Pt Level 3 (66587) Complex EM visit Add On G2211 Diagnoses Subluxation of left patella S83.002A
[2024-03-02 10:59] VITALS: BMI 30.3
== END 2024-03-02 11:15 | disposition home or self-care (01) ==
PROVIDERS: Visit Provider Physician Assistant
DX: S83.002A Unspecified subluxation of left patella, initial encounter (principal)
CPT/HCPCS: 99203

== ENCOUNTER → 2024-08-05 07:10 | Outpatient (BNV) | payer MEDICAID, SELFPAY | PROVIDERS: PCP Family Medicine; Visit Provider Radiology Diagnostic Radiology | DX: M23.612 Other spontaneous disruption of anterior cruciate ligament of left knee (principal) | CPT/HCPCS: 73721 ==

== ENCOUNTER 2024-08-05 07:13 | Outpatient (REF) | payer MEDICAID, SELFPAY ==
--- NOTE | ~2024-08-05 | MR_ITS ---
EXAMINATION: MR KNEE WITHOUT CONTRAST, LEFT CLINICAL INFORMATION: Persistent knee pain and swelling with activity since prior knee dislocation. Symptoms x1 year. Difficulty running. COMPARISON: No prior MRI. Correlation made with left knee radiographs 03/02/2024. TECHNIQUE: MRI of the left knee without contrast was performed using routine sequences on a 1.5 Meg Siemens high-field scanner. FINDINGS: MENISCI: LATERAL Meniscus: Truncation of the free margin of the body extending to the junction of the posterior horn, consistent with radial tearing. This is best seen on series 10, images 24-25. There is also irregularity of the free margin extending to the superior surface of the posterior horn. Remainder of the lateral meniscus is intact and normal in signal. MEDIAL Meniscus: Intact and normal in signal without discrete tear evident. LIGAMENTS: Anterior Cruciate: Somewhat diminutive in appearance with increased signal changes, findings consistent with partial tearing, likely chronic given history. There are some fibers remaining intact. Posterior Cruciate: Intact and normal in signal. Medial Collateral: Intact and normal in signal. Lateral Collateral Complex: Biceps femoris tendon, conjoined tendon, fibular collateral ligament, and popliteus tendon are intact and normal in signal. EXTENSOR MECHANISM: Intact and normal in signal. Hoffa's fat pad is grossly normal in signal. PATELLAR RETINACULUM: Bilaterally intact and normal in signal. The medial patellofemoral ligament is intact. BONE: Mild subchondral bone plate edema present in the anterior weightbearing lateral femoral condyle as detailed below. Otherwise, no abnormal bone marrow signal identified. JOINTS/CARTILAGE: Medial Compartment: Normal with intact cartilage. No defects. Lateral Compartment: Lateral compartment also demonstrates a full-thickness cartilage fissure/osteochondral injury involving the weightbearing anterior femoral condyle with small amount of subchondral bone plate edema. (Series 10, image 21; series 12, image 13). This measures approximately 1.2 x 0.8 cm. There appears to be an osseous loose body (displaced osteochondral fragment) anterior to the anterior horn of the lateral meniscus, measuring 0.9 x 1.4 x 0.5 cm (AP, TRV, CC). (Series 12, image 11; series 9, image 22). This is likely sequela of old injury. Patellofemoral Compartment: There is mild lateral patellar tilt. There is a mildly shallow trochlea. There are no cartilaginous abnormalities or significant arthritic changes. JOINT FLUID AND BURSAE: Small joint effusion present. No bursal abnormalities identified. OTHER: Popliteal fossa is unremarkable in appearance. The imaged muscles are normal in appearance without signal alterations. MR/MR knee LT wo con IMPRESSION: 1. Chronic appearing partial tearing of the ACL. 2. Radial tearing of the lateral meniscus involving the body. Somewhat irregular associated tearing of the superior surface of the posterior horn, extending to the free margin. 3. Intact medial meniscus. 4. Osteochondral lesion measuring approximately 1.2 x 0.8 cm involving the anterior weightbearing lateral femoral condyle, with small amount of subchondral bone plate edema. 5. Small osseous loose body measuring 0.9 x 1.4 x 0.5 cm anterior to the anterior horn of the lateral meniscus. This appears to be a free osteochondral fragment. Electronically signed by: Angel Munguia MD 08/05/2024 08:32 AM EDT
== END 2024-08-05 07:14 | disposition home or self-care (01) ==
LOC: HO.MRI 07:13
PROVIDERS: PCP Family Medicine; Visit Provider Family Medicine
DX: M25.562 Pain in left knee (principal); G89.29 Other chronic pain
CPT/HCPCS: 73721